=== PATIENT | female | born 1940 | race Hispanic/Latino ===

== ENCOUNTER 2017-07-12 06:17 | Inpatient (IN) | payer MEDICARE ==
[2017-07-08 08:09] VITALS: BMI 35.4
[2017-07-12] MEDS ORDERED: Morphine 1 mg/ml preservative-free Inj(Duramorph) ONE (07:43)
[2017-07-12] MEDS ORDERED: Succinylcholine 200 mg/10 ml Inj IV ONE (07:44)
[2017-07-12] MEDS ORDERED: Midazolam 2 MG/2 ML VIAL ONE (07:44)
[2017-07-12] MEDS ORDERED: Etomidate 20 mg/10ml Inj IV ONE (07:44)
[2017-07-12] MEDS ORDERED: Liquid Adhesive TOP ONE (08:22)
[2017-07-12] MEDS ORDERED: methylPREDNISolone Depo 80 mg/ml Inj ONE (08:22)
[2017-07-12] MEDS ORDERED: Sodium Chloride 0.9% 20 ML IV ONE (08:22)
[2017-07-12] MEDS ORDERED: Ropivacaine 0.5% 30ML IV ONE (08:22)
[2017-07-12] MEDS ORDERED: Bacitracin Ointment 30 GM TUBE ONE (08:23)
[2017-07-12] MEDS ORDERED: EPINEPHrine 1 mg/ml (1:1000) Inj ONE (08:30)
[2017-07-12] MEDS ORDERED: Bupivacaine 0.5% Inj(30mL) ONE (08:30)
[2017-07-12] MEDS ORDERED: Propofol 10 mg/ml Inj (20 ML) ONE (08:33)
[2017-07-12] MEDS ORDERED: Rocuronium 10 mg/ml (5 ml) ONE (08:45)
[2017-07-12 08:59] LABS: INR 1.3 (0.9-1.2); PROTHROMBIN TIME 13.3 Seconds (9.8-13.1)
[2017-07-12] MEDS ORDERED: Lactated Ringer's 1,000 ML IV ONE ×2 (09:03→11:45)
[2017-07-12] MEDS ORDERED: Sodium Chloride 0.9% 200 ML IV ONE (09:40)
[2017-07-12] MEDS ORDERED: ePHEDrine 50 mg/ml Inj ONE (10:22)
[2017-07-12] MEDS ORDERED: Bacitracin 50,000 UNIT in SODIUM CHLORIDE 3,000 ML IR ONE (10:25)
[2017-07-12] MEDS ORDERED: Neostigmine Methylsulfate 3mg/3ml Syringe IV ONE (11:43)
[2017-07-12] MEDS ORDERED: Bupivacaine 0.5% Inj(30mL) IJ ONE (11:45)
[2017-07-12] MEDS ORDERED: Sodium Chloride 0.9% Inj (10mL) IV ONE (11:45)
[2017-07-12] MEDS ORDERED: Dexamethasone 4 mg/1 ml IVP PRN (12:57)
[2017-07-12] MEDS ORDERED: HYDROmorphone 0.5 mg/0.5 ml ISec IVP PRN (12:57)
[2017-07-12] MEDS ORDERED: Albuterol 0.083% Inhal Sol (2.5 mg/3 mL) UD INH PRN (13:38)
--- NOTE | 2017-07-12 14:07 | OP ---
PROCEDURE DATE: 07/12/2017 ATTENDING PHYSICIAN: Roseann Cowart MD TRAILER ASSEMBLER: GERONIMO Steen. PREOPERATIVE DIAGNOSIS: Right hip osteoarthritis. POSTOPERATIVE DIAGNOSIS: Right hip osteoarthritis. PROCEDURE: Right total hip replacement. IMPLANTS SIZE: Howe, size 50 cup plus 2 screws, size 3 high offset stem, 32 mm head with plus 4 neck length, lateralized liner. EBL: 150 mL. ANESTHESIA TYPE: General and spinal. COMPLICATION: None. HISTORY: The patient is a 76-year-old female with long-standing history of right hip pain. The patient was seen in the office. X-rays had revealed advanced arthritis with collapse. At that time, the patient was seeking a total hip replacements since she has had failed extensive conservative management. I reviewed the risks and benefits of the surgery with the patient in detail that was concluded, but not limited to bleeding, infection, nerve/vessel damage, continued pain, instability, dislocation, fracture, blood clots, need for further surgery among others. The patient fully understood the risks and benefits and opted to proceed with the surgery. PROCEDURE: The patient was admitted to pre-operative holding area. A laterality sheet was completed confirming the patient's right hip to be the correct operative site. The patient's right hip was marked in a holding area. The patient was brought into operating table. She underwent general anesthesia and spinal anesthesia. She was secured in the right lateral decubitus position. All the bony prominences were well-padded. The right hip was draped and prepped in standard sterile manner. A timeout was completed confirming the patient's right hip to be the correct operative site. First we proceed with the placement of the pin in iliac crust for [place] robotic assisted placement, two pins were placed and the antenna was secured. Next, standard psotero- lateral incision was made. Using a 10 blade the hip was dissected. The IT band was incised along with its fibers and external rotators were excised and carefully dissected for later repair. Two additional checkpoints were placed, one in acetabulum and one in the femur. The hip was dislocated, proposed neck cut was made. The acetabulum was exposed all degenerative labrum was removed and using robot the hip was reamed using a 49 mm remur and 50 mm cup was placed with 2 screws. We also placed a 10 degree lateralized liner. Next, the attention was given to the femoral canal, was broached sequentially up to size 3 stent and 32 mm plus 4 trial head was placed, hip was reduced taking through the range of motion. It was found to stable throughout the entirety of the range of motion. Finally, the hip was dislocated, the wound was copiously irrigated, removed all the debris was removed. Size 3 high offset stem along with metal head plus 4 neck length was secured in the femur and hip was relocated, taking through the range of motion and wound to be stable throughout the entire range of motion. Finally, the cocktail was injected and the soft tissue structure for postoperative anesthesia. IT band closed using heavy fiber wire suture and a skin was closed in a standard manner. A sterile dressing was applied. The patient was extubated and taken to recovery room. She was placed in a postop hip abduction brace and also postoperative instruction included posterior hip precaution. There were no complication of surgery. Orion Hinojosa is a certified physician printer floor covering assistant who was present for the entirety of the case as her participation was crucial in patient positioning, protection of critical neurovascular structure, proper positioning of the implant and successful completion of the surgery. Roseann Cowart MD ABRAM
[2017-07-12 14:24] LABS: ABG ALLEN TEST YES; ARTERIAL BLOOD GAS HCO3 27.4 mmol/L (21-28); ARTERIAL BLOOD GAS HEMOGLOBIN 13.4 g/dL (11.7-17.4); ARTERIAL BLOOD GAS O2 CAPACITY 18.9 mL/dL (16-24); ARTERIAL BLOOD GAS O2 CONTENT 18.1 ML/dL (15-23); ARTERIAL BLOOD GAS O2 SAT 95.9 % (95-98); ARTERIAL BLOOD GAS PCO2 51 mm/Hg (35-45); ARTERIAL BLOOD GAS PH 7.37 (7.35-7.45); ARTERIAL BLOOD GAS PO2 118 mm/Hg (80-100); ARTERIAL BLOOD GAS TCO2 31.1 mmol/L (22-28)
--- NOTE | 2017-07-12 14:33 | PCM.SURG1 ---
Surgeon's Initial Post Op Note - Surgeon's Notes Surgeon: Roseann Cowart MD Drapery And Upholstery Estimator: Orion Hinojosa PA-C; Sadaf MANNING Type of Anesthesia: General Endo, Spinal Pre-Operative Diagnosis: Right Hip Osteoarthritis Operative Findings: See op report Post-Operative Diagnosis: Same as pre-op dx Operation Performed: Right Robotic assisted total hip replacement Specimen/Specimens Removed: right hip femoral head and soft tissue Estimated Blood Loss: EBL {In ML}: 250 Date of Surgery/Procedure: 07/12/17 Time of Surgery/Procedure: 10:00
--- NOTE | 2017-07-12 15:37 | RAD ---
PROCEDURE: Right Hip Radiographs. HISTORY: post op right total hip replacement COMPARISON: None. FINDINGS: BONES: Bone alignment and mineralization are normal. There is no acute displaced fracture or bone destruction. JOINTS: Status post total non cemented right hip arthroplasty. There are also postsurgical changes of total left hip arthroplasty. SOFT TISSUES: There are expected postoperative changes in the right periarticular soft tissues. Right-sided skin paige are identified. OTHER FINDINGS: None. IMPRESSION: Status post total right hip arthroplasty with expected postsurgical changes in the periarticular soft tissues.
--- NOTE | 2017-07-12 16:14 | CP.CCUPN ---
<Jojo Love - Last Filed: 07/12/17 16:33> CCU Subjective - Physician Review Subjective (Free Text): 07/12/17 16:07 Patient is a 76 yo ,f, Phx/o HTN, HLD, SCARLET, Skin Ca, CVA 2012, anxiety, vit D deficiency, Mitral regurgitation and PFO(patent forament ovale) with coumadin treatment, Left hip replacement 18 years ago, who was transferred to ICU after surgery today Right Robotic total hip replacement. Patient reports feeling well after surgery. She denies pain at this moment. denies Nausea, vomiting, chest pain, SOB. Patient using her CPAP machine from home. CCU Objective - Vital Signs / Intake & Output Vital Signs (Last 4 hours): Vital Signs Temp Pulse Resp BP Pulse Ox 07/12/17 14:35 97.4 F L 71 21 113/70 98 07/12/17 14:20 97.3 F L 67 17 128/63 100 07/12/17 14:05 62 18 114/56 L 100 07/12/17 13:50 97.1 F L 67 15 109/64 100 07/12/17 13:35 62 17 106/56 L 100 07/12/17 13:20 97 F L 61 18 103/65 100 07/12/17 13:19 64 07/12/17 13:05 67 19 95/56 L 100 07/12/17 12:50 96.8 F L 25 L 14 114/70 99 Intake and Output (Last 8hrs): Intake & Output 07/12/17 07/12/17 07/12/17 06:59 14:59 22:59 Intake Total 1999 Balance 1999 Intake: IV 1999 Other: Voiding Method Toilet - Physical Exam Head: Positive for: Atraumatic, Normocephalic Conjunctiva: Positive for: Normal Mouth: Positive for: Moist Mucous Membranes Respiratory/Chest: Positive for: Clear to Auscultation, Good Air Exchange. Negative for: Wheezes, Rales Cardiovascular: Positive for: Regular Rate and Rhythm Abdomen: Positive for: Other (Hypoactive bowel sounds). Negative for: Tenderness, Distention, Rebound, Guarding Upper Extremity: Positive for: Normal Inspection Lower Extremity: Positive for: NORMAL PULSES, Other (Right thigh dressing). Negative for: Edema, Tenderness, Swelling Neurological: Positive for: Speech Normal Skin: Positive for: Warm Psychiatric: Positive for: Alert, Oriented x 3, Normal Mood - Medications Active Medications: Active Medications Generic Name Dose Route Start Last Admin Trade Name Freq PRN Reason Stop Dose Admin Albuterol Sulfate 2.5 mg 07/12/17 13:38 Albuterol 0.083% Inhal [place] (2.5 Mg/3 Ml) Ud INH RQ4 PRN Shortness of Breath Celecoxib 100 mg 07/12/17 21:00 Celebrex PO Q12 [facility] Enoxaparin Sodium 30 mg 07/13/17 22:00 Lovenox SC Q12 [facility] Protocol Gabapentin 300 mg 07/12/17 17:00 Neurontin PO TID [facility] Hydrochlorothiazide 12.5 mg 07/13/17 09:00 Microzide PO DAILY [facility] Lactated Ringer's 1,000 mls @ 80 mls/hr 07/12/17 13:30 Lactated Ringer's IV .[id number] [facility] Cefazolin Sodium 1 gm/ Sodium 100 mls @ 100 mls/hr 07/12/17 17:00 Chloride IVPB 07/13/17 02:00 Q8 [facility] Ketorolac Tromethamine 15 mg 07/12/17 16:00 Toradol IM 07/14/17 13:35 Q6 [facility] Latanoprost 1 drop 07/12/17 22:00 Xalatan Opht OD HS [facility] Losartan Potassium 100 mg 07/13/17 09:00 Cozaar PO DAILY [facility] Metoprolol Succinate 100 mg 07/13/17 09:00 Toprol Xl PO DAILY [facility] Ondansetron HCl 4 mg 07/12/17 13:37 Zofran Inj IVP Q6 PRN Nausea/Vomiting Oxycodone HCl 20 mg 07/12/17 21:00 Oxycontin Extended Release Tab PO Q12 [facility] Oxycodone/Acetaminophen 1 tab 07/12/17 13:31 Percocet 5/325 Mg Tab PO 07/15/17 13:32 Q4 PRN Pain, moderate (4-7) - Patient Studies Lab Studies: Lab Studies 07/12/17 07/12/17 07/12/17 Range/Units 15:42 13:58 13:57 PT (9.8-13.1) Seconds INR (0.9-1.2) APTT (25.6-37.1) Seconds pCO2 51 H (35-45) mm/Hg pO2 118 H (80-100) mm/Hg HCO3 27.4 (21-28) mmol/L ABG pH 7.37 (7.35-7.45) ABG Total CO2 31.1 H (22-28) mmol/L ABG O2 Saturation 95.9 (95-98) % ABG O2 Content 18.1 (15-23) ML/dL ABG Base Excess 3.2 H (-2.0-3.0) mmol/L ABG Hemoglobin 13.4 (11.7-17.4) g/dL ABG Carboxyhemoglobin 0 L (0.5-1.5) % POC ABG HHb (Measured) 4.1 (0.0-5.0) % ABG Methemoglobin 0.5 (0.0-3.0) % ABG O2 Capacity 18.9 (16-24) mL/dL Hal Test Yes A-a O2 Difference 32.0 mm/Hg Hgb O2 Saturation 95.4 (95.0-98.0) % FiO2 30.0 % CPAP 12 POC Glucose (mg/dL) 84 100 (65-110) mg/dL Blood Type Blood Type Confirm Antibody Screen Crossmatch BBK History Checked 07/12/17 07/12/17 07/12/17 Range/Units 08:41 08:19 07:10 PT 13.3 H (9.8-13.1) Seconds INR 1.3 H (0.9-1.2) APTT 33.0 (25.6-37.1) Seconds pCO2 (35-45) mm/Hg pO2 (80-100) mm/Hg HCO3 (21-28) mmol/L ABG pH (7.35-7.45) ABG Total CO2 (22-28) mmol/L ABG O2 Saturation (95-98) % ABG O2 Content (15-23) ML/dL ABG Base Excess (-2.0-3.0) mmol/L ABG Hemoglobin (11.7-17.4) g/dL ABG Carboxyhemoglobin (0.5-1.5) % POC ABG HHb (Measured) (0.0-5.0) % ABG Methemoglobin (0.0-3.0) % ABG O2 Capacity (16-24) mL/dL Hal Test A-a O2 Difference mm/Hg Hgb O2 Saturation (95.0-98.0) % FiO2 % CPAP POC Glucose (mg/dL) (65-110) mg/dL Blood Type O POSITIVE Blood Type Confirm O POSITIVE Antibody Screen Negative Crossmatch See Detail BBK History Checked No verified bt Laboratory Results - last 24 hr 07/12/17 07/12/17 07/12/17 07:10 08:19 08:41 PT 13.3 H INR 1.3 H APTT 33.0 pCO2 pO2 HCO3 ABG pH ABG Total CO2 ABG O2 Saturation ABG O2 Content ABG Base Excess ABG Hemoglobin ABG Carboxyhemoglobin POC ABG HHb (Measured) ABG Methemoglobin ABG O2 Capacity Hal Test A-a O2 Difference Hgb O2 Saturation FiO2 CPAP POC Glucose (mg/dL) Blood Type O POSITIVE Blood Type Confirm O POSITIVE Antibody Screen Negative Crossmatch See Detail BBK History Checked No verified bt 07/12/17 07/12/17 07/12/17 13:57 13:58 15:42 PT INR APTT pCO2 51 H pO2 118 H HCO3 27.4 ABG pH 7.37 ABG Total CO2 31.1 H ABG O2 Saturation 95.9 ABG O2 Content 18.1 ABG Base Excess 3.2 H ABG Hemoglobin 13.4 ABG Carboxyhemoglobin 0 L POC ABG HHb (Measured) 4.1 ABG Methemoglobin 0.5 ABG O2 Capacity 18.9 Hal Test Yes A-a O2 Difference 32.0 Hgb O2 Saturation 95.4 FiO2 30.0 CPAP 12 POC Glucose (mg/dL) 100 84 Blood Type Blood Type Confirm Antibody Screen Crossmatch BBK History Checked Fingerstick Blood Sugar Results: 100 Review of Systems - EENT Eyes: absent: Pain - Breasts Breasts: UNREMARKABLE - Cardiovascular Cardiovascular: As Per HPI, UNREMARKABLE - Respiratory Respiratory: UNREMARKABLE - Gastrointestinal Gastrointestinal: UNREMARKABLE - Genitourinary Genitourinary: UNREMARKABLE Critical Care Progress Note - Prophylaxis DVT Prophylaxis DVT: SCDs - Nutrition Nutrition: Nutrition Category Date Time Status Cardiac [Heart Healthy Diet] [DIET] Diets 07/12/17 Dinner Active Assessment/Plan - Assessment and Plan (Free Text) Plan: 76 yo ,f, Phx/o HTN, HLD, SCARLET, Skin Ca, CVA 2013, anxiety, vit D deficiency, Mitral regurgitation and PFO(patent foramen ovale) with coumadin treatment, Left hip replacement 18 years ago, who was transferred to ICU after surgery today Right Robotic total hip replacement 1) Right Robotic total hip replacement -Iv fluids LR 80 ml/h -c/w Ancef q8h -Clear diet. advance as tolerated -Pain control toradol 15 mg Q6h, oxycodone 20 mg q12h 2) HTN -Losartan 100 mg daily -Hctz 12.5 mg -Metoprolol Succinate 100 mg Po daily 3)HLD -Simvastatin 40 mg po daily 4) Hx/o CVA -hx/o R occipital infartct CVA 2012 -no residual deficit 5) Mitral regurgitation -PFO and on warfarin. 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[facility] Escalante 6) SCARLET -controlled with CPAP home machine -C/w CPAP 7) DVT prophylaxis -Lovenox 30 mg Sc Q 12h <Shaji Walsh - Last Filed: 07/12/17 18:10> CCU Objective - Vital Signs / Intake & Output Vital Signs (Last 4 hours): Vital Signs Temp Pulse Resp BP Pulse Ox 07/12/17 15:05 98.4 F 70 11 L 100/59 L 99 07/12/17 14:35 97.4 F L 71 21 113/70 98 07/12/17 14:20 97.3 F L 67 17 128/63 100 Intake and Output (Last 8hrs): Intake & Output 07/12/17 07/12/17 07/12/17 06:59 14:59 22:59 Intake Total 1999 Balance 1999 Intake: IV 1999 Other: Voiding Method Toilet - Medications Active Medications: Active Medications Generic Name Dose Route Start Last Admin Trade Name Freq PRN Reason Stop Dose Admin Albuterol Sulfate 2.5 mg 07/12/17 13:38 Albuterol 0.083% Inhal [place] (2.5 Mg/3 Ml) Ud INH RQ4 PRN Shortness of Breath Celecoxib 100 mg 07/12/17 21:00 Celebrex PO Q12 [facility] Enoxaparin Sodium 30 mg 07/13/17 22:00 Lovenox SC Q12 [facility] Protocol Gabapentin 300 mg 07/12/17 17:00 07/12/17 16:44 Neurontin PO 300 mg TID [facility] Administration Hydrochlorothiazide 12.5 mg 07/13/17 09:00 Microzide PO DAILY [facility] Lactated Ringer's 1,000 mls @ 80 mls/hr 07/12/17 13:30 Lactated Ringer's IV .[id number] [facility] Cefazolin Sodium 1 gm/ Sodium 100 mls @ 100 mls/hr 07/12/17 17:00 07/12/17 16 :45 Chloride IVPB 07/13/17 02:00 100 mls/hr Q8 [facility] Administration Ketorolac Tromethamine 15 mg 07/12/17 16:00 07/12/17 16:44 Toradol IM 07/14/17 13:35 15 mg Q6 [facility] Administration Latanoprost 1 drop 07/12/17 22:00 Xalatan Opht OD HS [facility] Losartan Potassium 100 mg 07/13/17 09:00 Cozaar PO DAILY [facility] Metoprolol Succinate 100 mg 07/13/17 09:00 Toprol Xl PO DAILY [facility] Ondansetron HCl 4 mg 07/12/17 13:37 Zofran Inj IVP Q6 PRN Nausea/Vomiting Oxycodone HCl 20 mg 07/12/17 21:00 Oxycontin Extended Release Tab PO Q12 [facility] Oxycodone/Acetaminophen 1 tab 07/12/17 13:31 Percocet 5/325 Mg Tab PO 07/15/17 13:32 Q4 PRN Pain, moderate (4-7) - Patient Studies Lab Studies: Lab Studies 07/12/17 07/12/17 07/12/17 Range/Units 15:42 13:58 13:57 PT (9.8-13.1) Seconds INR (0.9-1.2) APTT (25.6-37.1) Seconds pCO2 51 H (35-45) mm/Hg pO2 118 H (80-100) mm/Hg HCO3 27.4 (21-28) mmol/L ABG pH 7.37 (7.35-7.45) ABG Total CO2 31.1 H (22-28) mmol/L ABG O2 Saturation 95.9 (95-98) % ABG O2 Content 18.1 (15-23) ML/dL ABG Base Excess 3.2 H (-2.0-3.0) mmol/L ABG Hemoglobin 13.4 (11.7-17.4) g/dL ABG Carboxyhemoglobin 0 L (0.5-1.5) % POC ABG HHb (Measured) 4.1 (0.0-5.0) % ABG Methemoglobin 0.5 (0.0-3.0) % ABG O2 Capacity 18.9 (16-24) mL/dL Hal Test Yes A-a O2 Difference 32.0 mm/Hg Hgb O2 Saturation 95.4 (95.0-98.0) % FiO2 30.0 % CPAP 12 POC Glucose (mg/dL) 84 100 (65-110) mg/dL Blood Type Blood Type Confirm Antibody Screen Crossmatch BBK History Checked 07/12/17 07/12/17 07/12/17 Range/Units 08:41 08:19 07:10 PT 13.3 H (9.8-13.1) Seconds INR 1.3 H (0.9-1.2) APTT 33.0 (25.6-37.1) Seconds pCO2 (35-45) mm/Hg pO2 (80-100) mm/Hg HCO3 (21-28) mmol/L ABG pH (7.35-7.45) ABG Total CO2 (22-28) mmol/L ABG O2 Saturation (95-98) % ABG O2 Content (15-23) ML/dL ABG Base Excess (-2.0-3.0) mmol/L ABG Hemoglobin (11.7-17.4) g/dL ABG Carboxyhemoglobin (0.5-1.5) % POC ABG HHb (Measured) (0.0-5.0) % ABG Methemoglobin (0.0-3.0) % ABG O2 Capacity (16-24) mL/dL Hal Test A-a O2 Difference mm/Hg Hgb O2 Saturation (95.0-98.0) % FiO2 % CPAP POC Glucose (mg/dL) (65-110) mg/dL Blood Type O POSITIVE Blood Type Confirm O POSITIVE Antibody Screen Negative Crossmatch See Detail BBK History Checked No verified bt Laboratory Results - last 24 hr 07/12/17 07/12/17 07/12/17 07:10 08:19 08:41 PT 13.3 H INR 1.3 H APTT 33.0 pCO2 pO2 HCO3 ABG pH ABG Total CO2 ABG O2 Saturation ABG O2 Content ABG Base Excess ABG Hemoglobin ABG Carboxyhemoglobin POC ABG HHb (Measured) ABG Methemoglobin ABG O2 Capacity Hal Test A-a O2 Difference Hgb O2 Saturation FiO2 CPAP POC Glucose (mg/dL) Blood Type O POSITIVE Blood Type Confirm O POSITIVE Antibody Screen Negative Crossmatch See Detail BBK History Checked No verified bt 07/12/17 07/12/17 07/12/17 13:57 13:58 15:42 PT INR APTT pCO2 51 H pO2 118 H HCO3 27.4 ABG pH 7.37 ABG Total CO2 31.1 H ABG O2 Saturation 95.9 ABG O2 Content 18.1 ABG Base Excess 3.2 H ABG Hemoglobin 13.4 ABG Carboxyhemoglobin 0 L POC ABG HHb (Measured) 4.1 ABG Methemoglobin 0.5 ABG O2 Capacity 18.9 Hal Test Yes A-a O2 Difference 32.0 Hgb O2 Saturation 95.4 FiO2 30.0 CPAP 12 POC Glucose (mg/dL) 100 84 Blood Type Blood Type Confirm Antibody Screen Crossmatch BBK History Checked Critical Care Progress Note - Nutrition Nutrition: Nutrition Category Date Time Status Cardiac [Heart Healthy Diet] [DIET] Diets 07/12/17 Dinner Active Attending/Attestation - Attestation I have personally seen and examined this patient.: Yes I have fully participated in the care of the patient.: Yes I have reviewed all pertinent clinical information: Yes Notes (Text): 07/12/17 18:08 Today: Wednesday, July 12, 2017 The patient was Seen/interviewed and examined by me at the bedside, Medical records reviewed and Management issues were discussed and formulated with the house staff. I have reviewed all the relevant clinical, laboratory, hemodynamic, radiographic data and medications Pt's current status is discussed with pt / pt's family I concur with resident's assessment and plan of care as transcribed in Dr. Love Note.
[2017-07-12] MEDS: ceFAZolin 1 GM in Sodium Chloride 0.9% 100 ML IVPB SCH (16:45)
[2017-07-12] MEDS ORDERED: oxyCODONE 20 mg ER Tab (oxyCONTIN) PO SCH (21:00)
[2017-07-12] MEDS: Latanoprost 0.005% Opht SOUTION OD SCH (21:13)
[2017-07-13] MEDS: ceFAZolin 1 GM in Sodium Chloride 0.9% 100 ML IVPB SCH (00:50)
[2017-07-13] MEDS ORDERED: ceFAZolin 1 GM in Sodium Chloride 0.9% 100 ML IVPB ONE (01:00)
[2017-07-13 05:22] LABS: BASO % 0.2 % (0.0-2.0); EOS # 0.1 K/uL (0.0-0.7); EOS % 1.2 % (0.0-4.0); LYMPH # 1.5 K/uL (1.0-4.3); LYMPH % 14.7 % (20.0-40.0); MEAN CELL VOLUME 93.1 fl (81.0-99.0); MEAN CORPUSCULAR HEMOGLOBIN 31.2 pg (27.0-31.0); MEAN CORPUSCULAR HGB CONC 33.5 g/dL (33.0-37.0); MEAN PLATELET VOLUME 8.6 fl (7.2-11.7); MONO # 1.5 K/uL (0.0-0.8); MONO % 14.4 % (0.0-10.0); NEUT # 7.3 K/uL (1.8-7.0); NEUT % 69.5 % (50.0-75.0); RBC 3.84 Mil/uL (3.80-5.20); RED CELL DISTRIBUTION WIDTH 12.7 % (11.5-14.5); WHITE BLOOD COUNT 10.4 K/uL (4.8-10.8)
[2017-07-13 05:23] LABS: CALCIUM 7.8 mg/dL (8.4-10.2)
[2017-07-13 05:33] LABS: INR 1.4 (0.9-1.2); PROTHROMBIN TIME 14.8 Seconds (9.8-13.1)
--- NOTE | 2017-07-13 08:49 | CP.CCUPN ---
<Jojo Love - Last Filed: 07/13/17 12:00> CCU Subjective - Physician Review Subjective (Free Text): 07/13/17 7:00Am Patient seen and examined bedside. NO overnight events. patient using CPAP machine. As per nurse o2 Sat 91. Patient encouraged to use incentive spirometry more frequent q1h. Patient report not voiding after yesterday surgery. She denies suprapubic pain, nausea, vomiting, no right leg pain. Patient tolerating diet. Febrile in the morning 102. Tylenol given. CCU Objective - Vital Signs / Intake & Output Vital Signs (Last 4 hours): Vital Signs Temp Pulse Resp BP Pulse Ox 07/13/17 08:00 100.2 F H 102 H 24 96/57 L 93 L 07/13/17 06:00 112 H 14 108/56 L 91 L - Physical Exam Head: Positive for: Atraumatic, Normocephalic Conjunctiva: Positive for: Normal Mouth: Positive for: Moist Mucous Membranes Respiratory/Chest: Positive for: Clear to Auscultation, Good Air Exchange. Negative for: Wheezes, Rales Cardiovascular: Positive for: Regular Rate and Rhythm Abdomen: Positive for: Normal Bowel Sounds, Other. Negative for: Tenderness, Distention, Rebound, Guarding Upper Extremity: Positive for: Normal Inspection Lower Extremity: Positive for: NORMAL PULSES, Other (Right thigh dressing intact. right calf Td to palpation, no pedal edema). Negative for: Edema, Tenderness, Swelling Neurological: Positive for: Speech Normal Skin: Positive for: Warm Psychiatric: Positive for: Alert, Oriented x 3, Normal Mood - Medications Active Medications: Active Medications Generic Name Dose Route Start Last Admin Trade Name Freq PRN Reason Stop Dose Admin Albuterol Sulfate 2.5 mg 07/12/17 13:38 Albuterol 0.083% Inhal [place] (2.5 Mg/3 Ml) Ud INH RQ4 PRN Shortness of Breath Celecoxib 100 mg 07/12/17 21:00 07/12/17 20:23 Celebrex PO 100 mg Q12 KARRI Administration Enoxaparin Sodium 30 mg 07/13/17 22:00 Lovenox SC Q12 [facility] Protocol Gabapentin 300 mg 07/12/17 17:00 07/12/17 16:44 Neurontin PO 300 mg TID KARRI Administration Hydrochlorothiazide 12.5 mg 07/13/17 09:00 Microzide PO DAILY [facility] Lactated Ringer's 1,000 mls @ 80 mls/hr 07/12/17 13:30 Lactated Ringer's IV .[id number] [facility] Ketorolac Tromethamine 15 mg 07/12/17 16:00 07/12/17 21:14 Toradol IM 07/14/17 13:35 15 mg Q6 KARRI Administration Latanoprost 1 drop 07/12/17 22:00 07/12/17 21:13 Xalatan Opht OD 1 drop HS KARRI Administration Losartan Potassium 100 mg 07/13/17 09:00 Cozaar PO DAILY [facility] Metoprolol Succinate 100 mg 07/13/17 09:00 Toprol Xl PO DAILY [facility] Ondansetron HCl 4 mg 07/12/17 13:37 Zofran Inj IVP Q6 PRN Nausea/Vomiting Oxycodone HCl 20 mg 07/12/17 21:00 07/12/17 20:23 Oxycontin Extended Release Tab PO 20 mg Q12 KARRI Administration Oxycodone/Acetaminophen 1 tab 07/12/17 13:31 Percocet 5/325 Mg Tab PO 07/15/17 13:32 Q4 PRN Pain, moderate (4-7) - Patient Studies Lab Studies: Lab Studies 07/13/17 07/13/17 07/13/17 Range/Units 06:03 04:35 04:35 WBC 10.4 (4.8-10.8) K/uL RBC 3.84 (3.80-5.20) Mil/uL Hgb 12.0 (12.0-16.0) g/dL Hct 35.8 (34.0-47.0) % MCV 93.1 (81.0-99.0) fl MCH 31.2 H (27.0-31.0) pg MCHC 33.5 (33.0-37.0) g/dL RDW 12.7 (11.5-14.5) % Plt Count 154 (130-400) K/uL MPV 8.6 (7.2-11.7) fl Neut % (Auto) 69.5 (50.0-75.0) % Lymph % (Auto) 14.7 L (20.0-40.0) % [place] % (Auto) 14.4 H (0.0-10.0) % Eos % (Auto) 1.2 (0.0-4.0) % Baso % (Auto) 0.2 (0.0-2.0) % Neut # 7.3 H (1.8-7.0) K/uL Lymph # 1.5 (1.0-4.3) K/uL [place] # 1.5 H (0.0-0.8) K/uL Eos # 0.1 (0.0-0.7) K/uL Baso # 0.0 (0.0-0.2) K/uL PT (9.8-13.1) Seconds INR (0.9-1.2) APTT (25.6-37.1) Seconds pCO2 (35-45) mm/Hg pO2 (80-100) mm/Hg HCO3 (21-28) mmol/L ABG pH (7.35-7.45) ABG Total CO2 (22-28) mmol/L ABG O2 Saturation (95-98) % ABG O2 Content (15-23) ML/dL ABG Base Excess (-2.0-3.0) mmol/L ABG Hemoglobin (11.7-17.4) g/dL ABG Carboxyhemoglobin (0.5-1.5) % POC ABG HHb (Measured) (0.0-5.0) % ABG Methemoglobin (0.0-3.0) % ABG O2 Capacity (16-24) mL/dL Hal Test A-a O2 Difference mm/Hg Hgb O2 Saturation (95.0-98.0) % FiO2 % CPAP Sodium 138 (132-148) mmol/l Potassium 3.8 (3.6-5.0) MMOL/L Chloride 102 (98-107) mmol/L Carbon Dioxide 28 (22-30) mmol/L Anion Gap 11 (10-20) BUN 27 H (7-17) mg/dl Creatinine 1.1 (0.7-1.2) mg/dL Est GFR ( Amer) 59 Est GFR (Non-Af Amer) 49 POC Glucose (mg/dL) 108 (65-110) mg/dL Random Glucose 105 (65-105) mg/dL Calcium 7.8 L (8.4-10.2) mg/dL Blood Type Blood Type Confirm Antibody Screen Crossmatch BBK History Checked 07/13/17 07/12/17 07/12/17 Range/Units 04:35 22:30 15:42 WBC (4.8-10.8) K/uL RBC (3.80-5.20) Mil/uL Hgb (12.0-16.0) g/dL Hct (34.0-47.0) % MCV (81.0-99.0) fl MCH (27.0-31.0) pg MCHC (33.0-37.0) g/dL RDW (11.5-14.5) % Plt Count (130-400) K/uL MPV (7.2-11.7) fl Neut % (Auto) (50.0-75.0) % Lymph % (Auto) (20.0-40.0) % [place] % (Auto) (0.0-10.0) % Eos % (Auto) (0.0-4.0) % Baso % (Auto) (0.0-2.0) % Neut # (1.8-7.0) K/uL Lymph # (1.0-4.3) K/uL [place] # (0.0-0.8) K/uL Eos # (0.0-0.7) K/uL Baso # (0.0-0.2) K/uL PT 14.8 H (9.8-13.1) Seconds INR 1.4 H (0.9-1.2) APTT (25.6-37.1) Seconds pCO2 (35-45) mm/Hg pO2 (80-100) mm/Hg HCO3 (21-28) mmol/L ABG pH (7.35-7.45) ABG Total CO2 (22-28) mmol/L ABG O2 Saturation (95-98) % ABG O2 Content (15-23) ML/dL ABG Base Excess (-2.0-3.0) mmol/L ABG Hemoglobin (11.7-17.4) g/dL ABG Carboxyhemoglobin (0.5-1.5) % POC ABG HHb (Measured) (0.0-5.0) % ABG Methemoglobin (0.0-3.0) % ABG O2 Capacity (16-24) mL/dL Hal Test A-a O2 Difference mm/Hg Hgb O2 Saturation (95.0-98.0) % FiO2 % CPAP Sodium (132-148) mmol/l Potassium (3.6-5.0) MMOL/L Chloride (98-107) mmol/L Carbon Dioxide (22-30) mmol/L Anion Gap (10-20) BUN (7-17) mg/dl Creatinine (0.7-1.2) mg/dL Est GFR ( Amer) Est GFR (Non-Af Amer) POC Glucose (mg/dL) 122 H 84 (65-110) mg/dL Random Glucose (65-105) mg/dL Calcium (8.4-10.2) mg/dL Blood Type Blood Type Confirm Antibody Screen Crossmatch BBK History Checked 07/12/17 07/12/17 07/12/17 Range/Units 13:58 13:57 08:41 WBC (4.8-10.8) K/uL RBC (3.80-5.20) Mil/uL Hgb (12.0-16.0) g/dL Hct (34.0-47.0) % MCV (81.0-99.0) fl MCH (27.0-31.0) pg MCHC (33.0-37.0) g/dL RDW (11.5-14.5) % Plt Count (130-400) K/uL MPV (7.2-11.7) fl Neut % (Auto) (50.0-75.0) % Lymph % (Auto) (20.0-40.0) % [place] % (Auto) (0.0-10.0) % Eos % (Auto) (0.0-4.0) % Baso % (Auto) (0.0-2.0) % Neut # (1.8-7.0) K/uL Lymph # (1.0-4.3) K/uL [place] # (0.0-0.8) K/uL Eos # (0.0-0.7) K/uL Baso # (0.0-0.2) K/uL PT 13.3 H (9.8-13.1) Seconds INR 1.3 H (0.9-1.2) APTT 33.0 (25.6-37.1) Seconds pCO2 51 H (35-45) mm/Hg pO2 118 H (80-100) mm/Hg HCO3 27.4 (21-28) mmol/L ABG pH 7.37 (7.35-7.45) ABG Total CO2 31.1 H (22-28) mmol/L ABG O2 Saturation 95.9 (95-98) % ABG O2 Content 18.1 (15-23) ML/dL ABG Base Excess 3.2 H (-2.0-3.0) mmol/L ABG Hemoglobin 13.4 (11.7-17.4) g/dL ABG Carboxyhemoglobin 0 L (0.5-1.5) % POC ABG HHb (Measured) 4.1 (0.0-5.0) % ABG Methemoglobin 0.5 (0.0-3.0) % ABG O2 Capacity 18.9 (16-24) mL/dL Hal Test Yes A-a O2 Difference 32.0 mm/Hg Hgb O2 Saturation 95.4 (95.0-98.0) % FiO2 30.0 % CPAP 12 Sodium (132-148) mmol/l Potassium (3.6-5.0) MMOL/L Chloride (98-107) mmol/L Carbon Dioxide (22-30) mmol/L Anion Gap (10-20) BUN (7-17) mg/dl Creatinine (0.7-1.2) mg/dL Est GFR ( Amer) Est GFR (Non-Af Amer) POC Glucose (mg/dL) 100 (65-110) mg/dL Random Glucose (65-105) mg/dL Calcium (8.4-10.2) mg/dL Blood Type Blood Type Confirm Antibody Screen Crossmatch BBK History Checked 07/12/17 07/12/17 Range/Units 08:19 07:10 WBC (4.8-10.8) K/uL RBC (3.80-5.20) Mil/uL Hgb (12.0-16.0) g/dL Hct (34.0-47.0) % MCV (81.0-99.0) fl MCH (27.0-31.0) pg MCHC (33.0-37.0) g/dL RDW (11.5-14.5) % Plt Count (130-400) K/uL MPV (7.2-11.7) fl Neut % (Auto) (50.0-75.0) % Lymph % (Auto) (20.0-40.0) % [place] % (Auto) (0.0-10.0) % Eos % (Auto) (0.0-4.0) % Baso % (Auto) (0.0-2.0) % Neut # (1.8-7.0) K/uL Lymph # (1.0-4.3) K/uL [place] # (0.0-0.8) K/uL Eos # (0.0-0.7) K/uL Baso # (0.0-0.2) K/uL PT (9.8-13.1) Seconds INR (0.9-1.2) APTT (25.6-37.1) Seconds pCO2 (35-45) mm/Hg pO2 (80-100) mm/Hg HCO3 (21-28) mmol/L ABG pH (7.35-7.45) ABG Total CO2 (22-28) mmol/L ABG O2 Saturation (95-98) % ABG O2 Content (15-23) ML/dL ABG Base Excess (-2.0-3.0) mmol/L ABG Hemoglobin (11.7-17.4) g/dL ABG Carboxyhemoglobin (0.5-1.5) % POC ABG HHb (Measured) (0.0-5.0) % ABG Methemoglobin (0.0-3.0) % ABG O2 Capacity (16-24) mL/dL Hal Test A-a O2 Difference mm/Hg Hgb O2 Saturation (95.0-98.0) % FiO2 % CPAP Sodium (132-148) mmol/l Potassium (3.6-5.0) MMOL/L Chloride (98-107) mmol/L Carbon Dioxide (22-30) mmol/L Anion Gap (10-20) BUN (7-17) mg/dl Creatinine (0.7-1.2) mg/dL Est GFR ( Amer) Est GFR (Non-Af Amer) POC Glucose (mg/dL) (65-110) mg/dL Random Glucose (65-105) mg/dL Calcium (8.4-10.2) mg/dL Blood Type O POSITIVE Blood Type Confirm O POSITIVE Antibody Screen Negative Crossmatch See Detail BBK History Checked No verified bt Laboratory Results - last 24 hr 07/12/17 07/12/17 07/12/17 07:10 08:19 08:41 WBC RBC Hgb Hct MCV MCH MCHC RDW Plt Count MPV Neut % (Auto) Lymph % (Auto) [place] % (Auto) Eos % (Auto) Baso % (Auto) Neut # Lymph # [place] # Eos # Baso # PT 13.3 H INR 1.3 H APTT 33.0 pCO2 pO2 HCO3 ABG pH ABG Total CO2 ABG O2 Saturation ABG O2 Content ABG Base Excess ABG Hemoglobin ABG Carboxyhemoglobin POC ABG HHb (Measured) ABG Methemoglobin ABG O2 Capacity Hal Test A-a O2 Difference Hgb O2 Saturation FiO2 CPAP Sodium Potassium Chloride Carbon Dioxide Anion Gap BUN Creatinine Est GFR ( Amer) Est GFR (Non-Af Amer) POC Glucose (mg/dL) Random Glucose Calcium Blood Type O POSITIVE Blood Type Confirm O POSITIVE Antibody Screen Negative Crossmatch See Detail BBK History Checked No verified bt 07/12/17 07/12/17 07/12/17 13:57 13:58 15:42 WBC RBC Hgb Hct MCV MCH MCHC RDW Plt Count MPV Neut % (Auto) Lymph % (Auto) [place] % (Auto) Eos % (Auto) Baso % (Auto) Neut # Lymph # [place] # Eos # Baso # PT INR APTT pCO2 51 H pO2 118 H HCO3 27.4 ABG pH 7.37 ABG Total CO2 31.1 H ABG O2 Saturation 95.9 ABG O2 Content 18.1 ABG Base Excess 3.2 H ABG Hemoglobin 13.4 ABG Carboxyhemoglobin 0 L POC ABG HHb (Measured) 4.1 ABG Methemoglobin 0.5 ABG O2 Capacity 18.9 Hal Test Yes A-a O2 Difference 32.0 Hgb O2 Saturation 95.4 FiO2 30.0 CPAP 12 Sodium Potassium Chloride Carbon Dioxide Anion Gap BUN Creatinine Est GFR ( Amer) Est GFR (Non-Af Amer) POC Glucose (mg/dL) 100 84 Random Glucose Calcium Blood Type Blood Type Confirm Antibody Screen Crossmatch BBK History Checked 07/12/17 07/13/17 07/13/17 22:30 04:35 04:35 WBC 10.4 RBC 3.84 Hgb 12.0 Hct 35.8 MCV 93.1 MCH 31.2 H MCHC 33.5 RDW 12.7 Plt Count 154 MPV 8.6 Neut % (Auto) 69.5 Lymph % (Auto) 14.7 L [place] % (Auto) 14.4 H Eos % (Auto) 1.2 Baso % (Auto) 0.2 Neut # 7.3 H Lymph # 1.5 [place] # 1.5 H Eos # 0.1 Baso # 0.0 PT 14.8 H INR 1.4 H APTT pCO2 pO2 HCO3 ABG pH ABG Total CO2 ABG O2 Saturation ABG O2 Content ABG Base Excess ABG Hemoglobin ABG Carboxyhemoglobin POC ABG HHb (Measured) ABG Methemoglobin ABG O2 Capacity Hal Test A-a O2 Difference Hgb O2 Saturation FiO2 CPAP Sodium Potassium Chloride Carbon Dioxide Anion Gap BUN Creatinine Est GFR ( Amer) Est GFR (Non-Af Amer) POC Glucose (mg/dL) 122 H Random Glucose Calcium Blood Type Blood Type Confirm Antibody Screen Crossmatch BBK History Checked 07/13/17 07/13/17 04:35 06:03 WBC RBC Hgb Hct MCV MCH MCHC RDW Plt Count MPV Neut % (Auto) Lymph % (Auto) [place] % (Auto) Eos % (Auto) Baso % (Auto) Neut # Lymph # [place] # Eos # Baso # PT INR APTT pCO2 pO2 HCO3 ABG pH ABG Total CO2 ABG O2 Saturation ABG O2 Content ABG Base Excess ABG Hemoglobin ABG Carboxyhemoglobin POC ABG HHb (Measured) ABG Methemoglobin ABG O2 Capacity Hal Test A-a O2 Difference Hgb O2 Saturation FiO2 CPAP Sodium 138 Potassium 3.8 Chloride 102 Carbon Dioxide 28 Anion Gap 11 BUN 27 H Creatinine 1.1 Est GFR ( Amer) 59 Est GFR (Non-Af Amer) 49 POC Glucose (mg/dL) 108 Random Glucose 105 Calcium 7.8 L Blood Type Blood Type Confirm Antibody Screen Crossmatch BBK History Checked Fingerstick Blood Sugar Results: 108 Review of Systems - EENT Ears: UNREMARKABLE - Cardiovascular Cardiovascular: UNREMARKABLE - Gastrointestinal Gastrointestinal: UNREMARKABLE - Musculoskeletal Musculoskeletal: absent: Joint Swelling - Psychiatric Psychiatric: UNREMARKABLE Critical Care Progress Note - Nutrition Nutrition: Nutrition Category Date Time Status Cardiac [Heart Healthy Diet] [DIET] Diets 07/12/17 Dinner Active Assessment/Plan - Assessment and Plan (Free Text) Plan: 76 yo ,f, Phx/o HTN, HLD, SCARLET, Skin Ca, CVA 2012, anxiety, vit D deficiency, Mitral regurgitation and PFO(patent foramen ovale) with coumadin treatment, Left hip replacement 18 years ago, who was transferred to ICU after surgery for Right Robotic total hip replacement 1) Right Robotic total hip replacement POD#1 -Iv fluids LR 80 ml/h -c/w Ancef q8h -Clear diet. advance as tolerated -Pain control toradol 15 mg Q6h PRN, Percocet Q4h PRN 2) Fever - labs reviewed CBC: WBC: 10.4 tachycardic -Tylenol 650 mg PO PRN -f/u vitals 3) HTN -controlled -BP low in the morning -will adjust meds as patiet's list -Losartan 100 mg qday -Hctz 12.5 mg -Metoprolol Tartrate 50 mg BID start tomorrow AM.Metoprolol 100 mg Succinate already given today. 4) SHASHANK postrenal secondary to urinary retention and meds -pain meds adjusted Bun/Cr 27/1.1 Bladder scan 212 ml -will f/u urine output 5)HLD -Simvastatin 40 mg po daily 6) Hx/o CVA -hx/o R occipital infartct CVA 2012 -no residual deficit 7) Mitral regurgitation -PFO and on warfarin. warfarin hold -Last INR 2.2 2 weeks ago -[employer] outpatient [facility] 8) SCARLET -controlled with CPAP home machine -C/w CPAP 9) DVT prophylaxis -Lovenox 30 mg Sc Q 12h <Shaji Walsh M - Last Filed: 07/13/17 14:21> CCU Objective - Vital Signs / Intake & Output Vital Signs (Last 4 hours): Vital Signs Temp Pulse Resp BP Pulse Ox 07/13/17 12:00 99.6 F 94 H 18 103/46 L 96 07/13/17 11:17 99.6 F Intake and Output (Last 8hrs): Intake & Output 07/12/17 07/13/17 07/13/17 22:59 06:59 14:59 Intake Total 560 Output Total 50 Balance 510 Intake: IV 320 Oral 240 Output: Urine 50 Urine, Voided 50 - Medications Active Medications: Active Medications Generic Name Dose Route Start Last Admin Trade Name Freq PRN Reason Stop Dose Admin Acetaminophen 650 mg 07/13/17 09:45 07/13/17 10:17 Tylenol 325mg Tab PO 650 mg ONCE PRN Administration Fever >100.4 F Albuterol Sulfate 2.5 mg 07/12/17 13:38 Albuterol 0.083% Inhal [place] (2.5 Mg/3 Ml) Ud INH RQ4 PRN Shortness of Breath Celecoxib 100 mg 07/12/17 21:00 07/13/17 13:02 Celebrex PO 100 mg Q12 KARRI Administration Enoxaparin Sodium 30 mg 07/13/17 22:00 Lovenox SC Q12 [facility] Protocol Gabapentin 300 mg 07/13/17 17:00 Neurontin PO Q8 [facility] Hydrochlorothiazide 12.5 mg 07/13/17 09:00 Microzide PO DAILY [facility] Lactated Ringer's 1,000 mls @ 80 mls/hr 07/12/17 13:30 Lactated Ringer's IV .[id number] [facility] Ketorolac Tromethamine 15 mg 07/13/17 09:40 Toradol IM 07/14/17 13:35 Q6 PRN Pain, moderate (4-7) Latanoprost 1 drop 07/12/17 22:00 07/12/17 21:13 Xalatan Opht OD 1 drop HS [facility] Administration Losartan Potassium 100 mg 07/13/17 09:00 Cozaar PO DAILY [facility] Metoprolol Tartrate 50 mg 07/14/17 09:00 Lopressor PO BID [facility] Ondansetron HCl 4 mg 07/12/17 13:37 Zofran Inj IVP Q6 PRN Nausea/Vomiting Oxycodone/Acetaminophen 1 tab 07/12/17 13:31 Percocet 5/325 Mg Tab PO 07/15/17 13:32 Q4 PRN Pain, moderate (4-7) - Patient Studies Lab Studies: Lab Studies 07/13/17 07/13/17 07/13/17 Range/Units 06:03 04:35 04:35 WBC 10.4 (4.8-10.8) K/uL RBC 3.84 (3.80-5.20) Mil/uL Hgb 12.0 (12.0-16.0) g/dL Hct 35.8 (34.0-47.0) % MCV 93.1 (81.0-99.0) fl MCH 31.2 H (27.0-31.0) pg MCHC 33.5 (33.0-37.0) g/dL RDW 12.7 (11.5-14.5) % Plt Count 154 (130-400) K/uL MPV 8.6 (7.2-11.7) fl Neut % (Auto) 69.5 (50.0-75.0) % Lymph % (Auto) 14.7 L (20.0-40.0) % [place] % (Auto) 14.4 H (0.0-10.0) % Eos % (Auto) 1.2 (0.0-4.0) % Baso % (Auto) 0.2 (0.0-2.0) % Neut # 7.3 H (1.8-7.0) K/uL Lymph # 1.5 (1.0-4.3) K/uL [place] # 1.5 H (0.0-0.8) K/uL Eos # 0.1 (0.0-0.7) K/uL Baso # 0.0 (0.0-0.2) K/uL PT (9.8-13.1) Seconds INR (0.9-1.2) pCO2 (35-45) mm/Hg pO2 (80-100) mm/Hg HCO3 (21-28) mmol/L ABG pH (7.35-7.45) ABG Total CO2 (22-28) mmol/L ABG O2 Saturation (95-98) % ABG O2 Content (15-23) ML/dL ABG Base Excess (-2.0-3.0) mmol/L ABG Hemoglobin (11.7-17.4) g/dL ABG Carboxyhemoglobin (0.5-1.5) % POC ABG HHb (Measured) (0.0-5.0) % ABG Methemoglobin (0.0-3.0) % ABG O2 Capacity (16-24) mL/dL Hal Test A-a O2 Difference mm/Hg Hgb O2 Saturation (95.0-98.0) % FiO2 % CPAP Sodium 138 (132-148) mmol/l Potassium 3.8 (3.6-5.0) MMOL/L Chloride 102 (98-107) mmol/L Carbon Dioxide 28 (22-30) mmol/L Anion Gap 11 (10-20) BUN 27 H (7-17) mg/dl Creatinine 1.1 (0.7-1.2) mg/dL Est GFR ( Amer) 59 Est GFR (Non-Af Amer) 49 POC Glucose (mg/dL) 108 (65-110) mg/dL Random Glucose 105 (65-105) mg/dL Calcium 7.8 L (8.4-10.2) mg/dL 07/13/17 07/12/17 07/12/17 Range/Units 04:35 22:30 15:42 WBC (4.8-10.8) K/uL RBC (3.80-5.20) Mil/uL Hgb (12.0-16.0) g/dL Hct (34.0-47.0) % MCV (81.0-99.0) fl MCH (27.0-31.0) pg MCHC (33.0-37.0) g/dL RDW (11.5-14.5) % Plt Count (130-400) K/uL MPV (7.2-11.7) fl Neut % (Auto) (50.0-75.0) % Lymph % (Auto) (20.0-40.0) % [place] % (Auto) (0.0-10.0) % Eos % (Auto) (0.0-4.0) % Baso % (Auto) (0.0-2.0) % Neut # (1.8-7.0) K/uL Lymph # (1.0-4.3) K/uL [place] # (0.0-0.8) K/uL Eos # (0.0-0.7) K/uL Baso # (0.0-0.2) K/uL PT 14.8 H (9.8-13.1) Seconds INR 1.4 H (0.9-1.2) pCO2 (35-45) mm/Hg pO2 (80-100) mm/Hg HCO3 (21-28) mmol/L ABG pH (7.35-7.45) ABG Total CO2 (22-28) mmol/L ABG O2 Saturation (95-98) % ABG O2 Content (15-23) ML/dL ABG Base Excess (-2.0-3.0) mmol/L ABG Hemoglobin (11.7-17.4) g/dL ABG Carboxyhemoglobin (0.5-1.5) % POC ABG HHb (Measured) (0.0-5.0) % ABG Methemoglobin (0.0-3.0) % ABG O2 Capacity (16-24) mL/dL Hal Test A-a O2 Difference mm/Hg Hgb O2 Saturation (95.0-98.0) % FiO2 % CPAP Sodium (132-148) mmol/l Potassium (3.6-5.0) MMOL/L Chloride (98-107) mmol/L Carbon Dioxide (22-30) mmol/L Anion Gap (10-20) BUN (7-17) mg/dl Creatinine (0.7-1.2) mg/dL Est GFR ( Amer) Est GFR (Non-Af Amer) POC Glucose (mg/dL) 122 H 84 (65-110) mg/dL Random Glucose (65-105) mg/dL Calcium (8.4-10.2) mg/dL 07/12/17 Range/Units 13:57 WBC (4.8-10.8) K/uL RBC (3.80-5.20) Mil/uL Hgb (12.0-16.0) g/dL Hct (34.0-47.0) % MCV (81.0-99.0) fl MCH (27.0-31.0) pg MCHC (33.0-37.0) g/dL RDW (11.5-14.5) % Plt Count (130-400) K/uL MPV (7.2-11.7) fl Neut % (Auto) (50.0-75.0) % Lymph % (Auto) (20.0-40.0) % [place] % (Auto) (0.0-10.0) % Eos % (Auto) (0.0-4.0) % Baso % (Auto) (0.0-2.0) % Neut # (1.8-7.0) K/uL Lymph # (1.0-4.3) K/uL [place] # (0.0-0.8) K/uL Eos # (0.0-0.7) K/uL Baso # (0.0-0.2) K/uL PT (9.8-13.1) Seconds INR (0.9-1.2) pCO2 51 H (35-45) mm/Hg pO2 118 H (80-100) mm/Hg HCO3 27.4 (21-28) mmol/L ABG pH 7.37 (7.35-7.45) ABG Total CO2 31.1 H (22-28) mmol/L ABG O2 Saturation 95.9 (95-98) % ABG O2 Content 18.1 (15-23) ML/dL ABG Base Excess 3.2 H (-2.0-3.0) mmol/L ABG Hemoglobin 13.4 (11.7-17.4) g/dL ABG Carboxyhemoglobin 0 L (0.5-1.5) % POC ABG HHb (Measured) 4.1 (0.0-5.0) % ABG Methemoglobin 0.5 (0.0-3.0) % ABG O2 Capacity 18.9 (16-24) mL/dL Hal Test Yes A-a O2 Difference 32.0 mm/Hg Hgb O2 Saturation 95.4 (95.0-98.0) % FiO2 30.0 % CPAP 12 Sodium (132-148) mmol/l Potassium (3.6-5.0) MMOL/L Chloride (98-107) mmol/L Carbon Dioxide (22-30) mmol/L Anion Gap (10-20) BUN (7-17) mg/dl Creatinine (0.7-1.2) mg/dL Est GFR ( Amer) Est GFR (Non-Af Amer) POC Glucose (mg/dL) (65-110) mg/dL Random Glucose (65-105) mg/dL Calcium (8.4-10.2) mg/dL Laboratory Results - last 24 hr 07/12/17 07/12/17 07/12/17 13:57 15:42 22:30 WBC RBC Hgb Hct MCV MCH MCHC RDW Plt Count MPV Neut % (Auto) Lymph % (Auto) [place] % (Auto) Eos % (Auto) Baso % (Auto) Neut # Lymph # [place] # Eos # Baso # PT INR pCO2 51 H pO2 118 H HCO3 27.4 ABG pH 7.37 ABG Total CO2 31.1 H ABG O2 Saturation 95.9 ABG O2 Content 18.1 ABG Base Excess 3.2 H ABG Hemoglobin 13.4 ABG Carboxyhemoglobin 0 L POC ABG HHb (Measured) 4.1 ABG Methemoglobin 0.5 ABG O2 Capacity 18.9 Hal Test Yes A-a O2 Difference 32.0 Hgb O2 Saturation 95.4 FiO2 30.0 CPAP 12 Sodium Potassium Chloride Carbon Dioxide Anion Gap BUN Creatinine Est GFR ( Amer) Est GFR (Non-Af Amer) POC Glucose (mg/dL) 84 122 H Random Glucose Calcium 07/13/17 07/13/17 07/13/17 04:35 04:35 04:35 WBC 10.4 RBC 3.84 Hgb 12.0 Hct 35.8 MCV 93.1 MCH 31.2 H MCHC 33.5 RDW 12.7 Plt Count 154 MPV 8.6 Neut % (Auto) 69.5 Lymph % (Auto) 14.7 L [place] % (Auto) 14.4 H Eos % (Auto) 1.2 Baso % (Auto) 0.2 Neut # 7.3 H Lymph # 1.5 [place] # 1.5 H Eos # 0.1 Baso # 0.0 PT 14.8 H INR 1.4 H pCO2 pO2 HCO3 ABG pH ABG Total CO2 ABG O2 Saturation ABG O2 Content ABG Base Excess ABG Hemoglobin ABG Carboxyhemoglobin POC ABG HHb (Measured) ABG Methemoglobin ABG O2 Capacity Hal Test A-a O2 Difference Hgb O2 Saturation FiO2 CPAP Sodium 138 Potassium 3.8 Chloride 102 Carbon Dioxide 28 Anion Gap 11 BUN 27 H Creatinine 1.1 Est GFR ( Amer) 59 Est GFR (Non-Af Amer) 49 POC Glucose (mg/dL) Random Glucose 105 Calcium 7.8 L 07/13/17 06:03 WBC RBC Hgb Hct MCV MCH MCHC RDW Plt Count MPV Neut % (Auto) Lymph % (Auto) [place] % (Auto) Eos % (Auto) Baso % (Auto) Neut # Lymph # [place] # Eos # Baso # PT INR pCO2 pO2 HCO3 ABG pH ABG Total CO2 ABG O2 Saturation ABG O2 Content ABG Base Excess ABG Hemoglobin ABG Carboxyhemoglobin POC ABG HHb (Measured) ABG Methemoglobin ABG O2 Capacity Hal Test A-a O2 Difference Hgb O2 Saturation FiO2 CPAP Sodium Potassium Chloride Carbon Dioxide Anion Gap BUN Creatinine Est GFR ( Amer) Est GFR (Non-Af Amer) POC Glucose (mg/dL) 108 Random Glucose Calcium Critical Care Progress Note - Nutrition Nutrition: Nutrition Category Date Time Status Cardiac [Heart Healthy Diet] [DIET] Diets 07/12/17 Dinner Active Attending/Attestation - Attestation I have personally seen and examined this patient.: Yes I have fully participated in the care of the patient.: Yes I have reviewed all pertinent clinical information: Yes Notes (Text): 07/13/17 14:19 Today: Tuesday, July 13, 2017 The patient was Seen/interviewed and examined by me at the bedside during ICU round, Medical records reviewed and Management issues were discussed and formulated with the house staff. I have reviewed all the relevant clinical, laboratory, hemodynamic, radiographic data and medications I was present for the viveros/critical components of the service performed by the resident, concur with resident's assessment and plan of care as transcribed in Dr. Tessy Love..
[2017-07-13] MEDS ORDERED: Metoprolol Succinate 100 mg XL Tab PO SCH (09:00)
--- NOTE | 2017-07-13 13:42 | CP.PCM.HP ---
History of Present Illness - History of Present Illness History of Present Illness: 76 yo ,f, Phx/o HTN, HLD, SCARLET, Skin Ca, CVA 2012, anxiety, vit D deficiency, Mitral regurgitation and PFO(patent forament ovale) with coumadin treatment, Left hip replacement 18 years ago, who was transferred to ICU after surgery yesterday, Right Robotic total hip replacement. patient seen and examined in ICU with attending. patient alert, awake, and oriented x 3 Reports good pain control with pain meds, and denies CP, SOB, N/V, abdominal pain Present on Admission - Present on Admission Any Indicators Present on Admission: No History of DVT/PE: No History of Uncontrolled Diabetes: No Urinary Catheter: No Decubitus Ulcer Present: No Review of Systems - Review of Systems All systems: reviewed and no additional remarkable complaints except (as per HPI ) Past Patient History - Tetanus Immunizations Tetanus Immunization: Unknown - Past Medical History & Family History Past Medical History?: Yes - Past Social History Smoking Status: Never Smoked - CARDIAC Hx Hypercholesterolemia: Yes Hx Hypertension: Yes - PULMONARY Hx Respiratory Disorders: Yes Hx Sleep Apnea: Yes (ON C-PAP) - NEUROLOGICAL Hx Neurological Disorder: Yes Other/Comment: HX OF VERY LIGHT STROKE -NO RESIDUAL -5 YEARS AGO - HEENT Hx HEENT Problems: Yes Hx Glaucoma: Yes - RENAL Hx Chronic Kidney Disease: No - ENDOCRINE/METABOLIC Hx Endocrine Disorders: No - HEMATOLOGICAL/ONCOLOGICAL Hx Blood Disorders: No Hx Anemia: No Hx Blood Transfusions: No - INTEGUMENTARY Hx Dermatological Problems: No - MUSCULOSKELETAL/RHEUMATOLOGICAL Hx Musculoskeletal Disorders: Yes Hx Arthritis: Yes Hx Osteoarthritis: Yes - GASTROINTESTINAL Hx Gastrointestinal Disorders: No - GENITOURINARY/GYNECOLOGICAL Hx Genitourinary Disorders: No - PSYCHIATRIC Hx Psychophysiologic Disorder: No - SURGICAL HISTORY Hx Surgeries: Yes Other/Comment: LEFT TOTAL HIP-1998;GALLBLADDER SURGERY;HEART ABLATION-SEVERE SVT -8-YEARS AGO;TONSILLECTOMY - ANESTHESIA Hx Anesthesia: Yes Hx Anesthesia Reactions: No Hx Malignant Hyperthermia: No Has any member of the family had a problem w/ anesthesia?: No Meds Allergies/Adverse Reactions: Allergies Allergy/AdvReac Type Severity Reaction Status Date / Time No Known Allergies Allergy Verified 08/01/12 14:34 Physical Exam - Constitutional Appears: No Acute Distress - ENT Exam ENT Exam: Mucous Membranes Moist - Respiratory Exam Respiratory Exam: Clear to Auscultation Bilateral, NORMAL BREATHING PATTERN - Cardiovascular Exam Cardiovascular Exam: REGULAR RHYTHM, +S1, +S2 - GI/Abdominal Exam GI & Abdominal Exam: Normal Bowel Sounds, Soft. absent: Distended, Guarding, Rigid, Tenderness - Extremities Exam Extremities exam: Positive for: normal inspection. Negative for: pedal edema - Neurological Exam Neurological exam: Alert, Oriented x3 - Psychiatric Exam Psychiatric exam: Normal Affect, Normal Mood - Skin Skin Exam: Dry, Intact, Normal Color Results - Vital Signs Recent Vital Signs: Last Vital Signs Temp 99.6 F 07/13/17 12:00 Pulse 94 H 07/13/17 12:00 Resp 18 07/13/17 12:00 BP 103/46 L 07/13/17 12:00 Pulse Ox 96 07/13/17 12:00 - Labs Result Diagrams: 07/13/17 04:35 07/13/17 04:35 Labs: Laboratory Results - last 24 hr 07/12/17 07/12/17 07/12/17 13:57 13:58 15:42 WBC RBC Hgb Hct MCV MCH MCHC RDW Plt Count MPV Neut % (Auto) Lymph % (Auto) Liberty % (Auto) Eos % (Auto) Baso % (Auto) Neut # Lymph # Liberty # Eos # Baso # PT INR pCO2 51 H pO2 118 H HCO3 27.4 ABG pH 7.37 ABG Total CO2 31.1 H ABG O2 Saturation 95.9 ABG O2 Content 18.1 ABG Base Excess 3.2 H ABG Hemoglobin 13.4 ABG Carboxyhemoglobin 0 L POC ABG HHb (Measured) 4.1 ABG Methemoglobin 0.5 ABG O2 Capacity 18.9 Hal Test Yes A-a O2 Difference 32.0 Hgb O2 Saturation 95.4 FiO2 30.0 CPAP 12 Sodium Potassium Chloride Carbon Dioxide Anion Gap BUN Creatinine Est GFR ( Amer) Est GFR (Non-Af Amer) POC Glucose (mg/dL) 100 84 Random Glucose Calcium 07/12/17 07/13/17 07/13/17 22:30 04:35 04:35 WBC 10.4 RBC 3.84 Hgb 12.0 Hct 35.8 MCV 93.1 MCH 31.2 H MCHC 33.5 RDW 12.7 Plt Count 154 MPV 8.6 Neut % (Auto) 69.5 Lymph % (Auto) 14.7 L Liberty % (Auto) 14.4 H Eos % (Auto) 1.2 Baso % (Auto) 0.2 Neut # 7.3 H Lymph # 1.5 Liberty # 1.5 H Eos # 0.1 Baso # 0.0 PT 14.8 H INR 1.4 H pCO2 pO2 HCO3 ABG pH ABG Total CO2 ABG O2 Saturation ABG O2 Content ABG Base Excess ABG Hemoglobin ABG Carboxyhemoglobin POC ABG HHb (Measured) ABG Methemoglobin ABG O2 Capacity Hal Test A-a O2 Difference Hgb O2 Saturation FiO2 CPAP Sodium Potassium Chloride Carbon Dioxide Anion Gap BUN Creatinine Est GFR ( Amer) Est GFR (Non-Af Amer) POC Glucose (mg/dL) 122 H Random Glucose Calcium /16/17 /16/17 04:35 06:03 WBC RBC Hgb Hct MCV MCH MCHC RDW Plt Count MPV Neut % (Auto) Lymph % (Auto) Liberty % (Auto) Eos % (Auto) Baso % (Auto) Neut # Lymph # Liberty # Eos # Baso # PT INR pCO2 pO2 HCO3 ABG pH ABG Total CO2 ABG O2 Saturation ABG O2 Content ABG Base Excess ABG Hemoglobin ABG Carboxyhemoglobin POC ABG HHb (Measured) ABG Methemoglobin ABG O2 Capacity Hal Test A-a O2 Difference Hgb O2 Saturation FiO2 CPAP Sodium 138 Potassium 3.8 Chloride 102 Carbon Dioxide 28 Anion Gap 11 BUN 27 H Creatinine 1.1 Est GFR ( Amer) 59 Est GFR (Non-Af Amer) 49 POC Glucose (mg/dL) 108 Random Glucose 105 Calcium 7.8 L Assessment & Plan - Assessment and Plan (Free Text) Assessment: 76 Y/O F S/P Right Robotic total hip replacement on POD #1 Plan: Right Robotic total hip replacement POD#1 -Iv fluids LR 80 ml/h -c/w Ancef q8h for 3 doses -Clear diet. advance as tolerated -Pain control toradol 15 mg Q6h PRN, Percocet Q4h PRN -incentive spirometer -f/u Ortho recommendations HTN -controlled -BP low in the morning -Losartan 100 mg qday. Held for today due to low BP -Hctz 12.5 mg. Held for today due to low BP -Metoprolol Tartrate 50 mg BID start tomorrow AM.Metoprolol 100 mg Succinate already given today.As per ICU doctors recommendation HLD -Simvastatin 40 mg po daily Hx/o CVA -hx/o R occipital infartct CVA 2012 -no residual deficit Mitral regurgitation -PFO and on warfarin. warfarin hold -Last INR 2.2 2 weeks ago -Triage Nurse outpatient Germain Escalante SCARLET -controlled with CPAP home machine -C/w CPAP DVT prophylaxis -start today Lovenox 30 mg Sc Q 12h - Date & Time Date: 07/13/17 Time: 09:45
--- NOTE | 2017-07-13 14:53 | CP.PCM.PN ---
Subjective - Date & Time of Evaluation Date of Evaluation: 07/13/17 Time of Evaluation: 08:30 - Subjective Subjective: S/P Right robotic assisted total hip replacement POD#1 Pt seen and examined at bedside, comfortable in bed Pt c/o mild right hip pain Pt denies any SOB, chest pain, N/V/D Objective - Vital Signs/Intake and Output Vital Signs (last 24 hours): Temp Pulse Resp BP Pulse Ox 99.6 F 94 H 18 103/46 L 96 07/13/17 12:00 07/13/17 12:00 07/13/17 12:00 07/13/17 12:00 07/13/17 12:00 Intake and Output: 07/13/17 07/13/17 06:59 18:59 Intake Total 560 Output Total 50 Balance 510 - Medications Medications: Current Medications Acetaminophen (Tylenol 325mg Tab) 650 mg PO ONCE PRN PRN Reason: Fever >100.4 F Last Admin: 07/13/17 10:17 Dose: 650 mg Albuterol Sulfate (Albuterol 0.083% Inhal [place] (2.5 Mg/3 Ml) Ud) 2.5 mg INH RQ4 PRN PRN Reason: Shortness of Breath Celecoxib (Celebrex) 100 mg PO Q12 [facility] Last Admin: 07/13/17 13:02 Dose: 100 mg Enoxaparin Sodium (Lovenox) 30 mg SC Q12 [facility] PRN Reason: Protocol Gabapentin (Neurontin) 300 mg PO Q8 [facility] Hydrochlorothiazide (Microzide) 12.5 mg PO DAILY [facility] Lactated Ringer's (Lactated Ringer's) 1,000 mls @ 80 mls/hr IV .[id number] [facility] Ketorolac Tromethamine (Toradol) 15 mg IM Q6 PRN PRN Reason: Pain, moderate (4-7) Stop: 07/14/17 13:35 Latanoprost (Xalatan Opht) 1 drop OD HS [facility] Last Admin: 07/12/17 21:13 Dose: 1 drop Losartan Potassium (Cozaar) 100 mg PO DAILY [facility] Metoprolol Tartrate (Lopressor) 50 mg PO BID [facility] Ondansetron HCl (Zofran Inj) 4 mg IVP Q6 PRN PRN Reason: Nausea/Vomiting Oxycodone/Acetaminophen (Percocet 5/325 Mg Tab) 1 tab PO Q4 PRN PRN Reason: Pain, moderate (4-7) Stop: 07/15/17 13:32 - Labs Labs: 07/13/17 04:35 07/13/17 04:35 PT 14.8 Seconds (9.8-13.1) H 07/13/17 04:35 INR 1.4 (0.9-1.2) H 07/13/17 04:35 APTT 33.0 Seconds (25.6-37.1) 07/12/17 08:41 - Constitutional Appears: Well, No Acute Distress - Respiratory Exam Respiratory Exam: Clear to Ausculation Bilateral, NORMAL BREATHING PATTERN - Cardiovascular Exam Cardiovascular Exam: REGULAR RHYTHM, RRR - Extremities Exam Additional comments: RLE: Hip dressing C/D/I Calves soft and compressible b/l, +ttp right calf N/V intact distally Distal pulses wnl No foot drop Assessment and Plan - Assessment and Plan (Free Text) Assessment: 76 yo F s/p right robotic assisted total hip replacement POD#1 Plan: 76 yo F s/p right robotic assisted total hip replacement POD#1 Pain Control DVT ppx F/U b/l LE US r/o DVT RLE Incentive Spirometer PT/OT- WBAT RLE F/U labs Continue current management Discussed with Dr. Cowart
--- NOTE | 2017-07-13 15:11 | US ---
PROCEDURE: Bilateral lower extremity venous duplex Doppler. HISTORY: r/o dvt COMPARISON: None available. TECHNIQUE: Bilateral common femoral, superficial femoral, popliteal and posterior tibial veins were evaluated. Flow was assessed with color Doppler, compressibility, assessment of phasic flow and augmentation response. FINDINGS: COMMON FEMORAL VEIN: Right CFV: There is normal direction of flow, compressibility and spectral waveform. Left CFV: There is normal direction of flow, compressibility and spectral waveform. SUPERFICIAL FEMORAL VEIN: Right SFV: There is normal direction of flow, compressibility and spectral waveform. Left SFV: There is normal direction of flow, compressibility and spectral waveform. POPLITEAL VEIN: Right Popliteal: There is normal direction of flow, compressibility and spectral waveform. Left Popliteal: There is normal direction of flow, compressibility and spectral waveform. POSTERIOR TIBIAL VEIN: Right PTV: There is normal direction of flow, compressibility and spectral waveform. Left PTV: There is normal direction of flow, compressibility and spectral waveform. OTHER FINDINGS: None. IMPRESSION: No evidence of deep venous thrombosis.
[2017-07-13] MEDS: Enoxaparin 30 mg Syringe SC SCH (21:07)
[2017-07-13] MEDS: Latanoprost 0.005% Opht SOUTION OD SCH (21:07)
[2017-07-13] MEDS: Lactated Ringer's 1,000 ML IV SCH (21:12)
[2017-07-14] MEDS: Lactated Ringer's 1,000 ML IV SCH (03:42)
[2017-07-14 06:07] LABS: HEMOGLOBIN 11.9 g/dL (12.0-16.0); MEAN CELL VOLUME 93.3 fl (81.0-99.0); MEAN CORPUSCULAR HEMOGLOBIN 30.8 pg (27.0-31.0); RBC 3.86 Mil/uL (3.80-5.20); RED CELL DISTRIBUTION WIDTH 12.9 % (11.5-14.5); WHITE BLOOD COUNT 18.1 K/uL (4.8-10.8)
[2017-07-14 06:16] LABS: ALBUMIN 3.1 g/dL (3.5-5.0); CALCIUM 7.9 mg/dL (8.4-10.2)
[2017-07-14 06:36] LABS: ALB/GLOB RATIO 1.1 (1.0-2.1)
[2017-07-14] MEDS: Enoxaparin 30 mg Syringe SC SCH ×2 (08:15→20:18)
[2017-07-14 11:01] LABS: HEMOGLOBIN 11.9 g/dL (12.0-16.0); MEAN CORPUSCULAR HEMOGLOBIN 30.9 pg (27.0-31.0); MEAN CORPUSCULAR HGB CONC 33.6 g/dL (33.0-37.0); RBC 3.86 Mil/uL (3.80-5.20); RED CELL DISTRIBUTION WIDTH 12.9 % (11.5-14.5); WHITE BLOOD COUNT 14.3 K/uL (4.8-10.8)
[2017-07-14] MEDS: Sodium Chloride 0.9% 1,000 ML IV SCH ×3 (11:31→22:28)
[2017-07-14] MEDS: Pantoprazole 40 mg EC Tab PO SCH (11:33)
[2017-07-14] MEDS: ceFAZolin 1 GM in Sodium Chloride 0.9% 100 ML IVPB SCH ×2 (11:40→17:12)
[2017-07-14] MEDS: Oxycodone/Acetaminophen 5/325 mg Tab PO PRN ×2 (14:58→20:16)
[2017-07-14 15:14] LABS: SQUAMOUS EPITHIAL 3 /hpf (0-5); URINE BILIRUBIN NEGATIVE (NEGATIVE); URINE BLOOD SMALL (NEGATIVE); URINE CLARITY TURBID (Clear); URINE COLOR YELLOW (YELLOW); URINE GLUCOSE (UA) NEG (Normal); URINE LEUKOCYTE ESTERASE LARGE Leu/uL (Negative); URINE NITRATE NEGATIVE (NEGATIVE); URINE PROTEIN 30 mg/dL (NEGATIVE); URINE UROBILINOGEN 0.2-1.0 mg/dL (0.2-1.0); WBC CLUMPS RARE /hpf
[2017-07-14 15:31] LABS: URINE BACTERIA MOD (<OCC)
--- NOTE | 2017-07-14 15:58 | CP.PCM.PN ---
Subjective - Date & Time of Evaluation Date of Evaluation: 07/14/17 Time of Evaluation: 08:50 - Subjective Subjective: patient seen and examined with attending Pt states that she did not sleep well last night due to muscle spams had a fever of 101 F last night Denies Cp, SOB, Cough, N/V, abdominal pain passing gas, but has not yet had a BM Objective - Vital Signs/Intake and Output Vital Signs (last 24 hours): Temp Pulse Resp BP Pulse Ox 98.2 F 100 H 20 95/58 L 94 L 07/14/17 07:38 07/14/17 07:38 07/14/17 07:38 07/14/17 07:38 07/14/17 07:38 Intake and Output: 07/14/17 07/14/17 06:59 18:59 Intake Total 240 Balance 240 - Medications Medications: Current Medications Acetaminophen (Tylenol 325mg Tab) 650 mg PO ONCE PRN PRN Reason: Fever >100.4 F Last Admin: 07/13/17 10:17 Dose: 650 mg Albuterol Sulfate (Albuterol 0.083% Inhal [place] (2.5 Mg/3 Ml) Ud) 2.5 mg INH RQ4 PRN PRN Reason: Shortness of Breath Celecoxib (Celebrex) 100 mg PO Q12 [facility] Last Admin: 07/14/17 08:15 Dose: 100 mg Enoxaparin Sodium (Lovenox) 30 mg SC Q12 [facility] PRN Reason: Protocol Last Admin: 07/14/17 08:15 Dose: 30 mg Gabapentin (Neurontin) 600 mg PO HS [facility] Home Med (Patient's Own Medication) 0.5 unit PO DAILY [facility] Hydrochlorothiazide (Microzide) 12.5 mg PO DAILY [facility] Cefazolin Sodium 1 gm/ Sodium (Chloride) 100 mls @ 100 mls/hr IVPB Q8 [facility] Last Admin: 07/14/17 11:40 Dose: 100 mls/hr Sodium Chloride (Sodium Chloride 0.9%) 1,000 mls @ 80 mls/hr IV .[id number] [facility] Stop: 07/15/17 09:42 Last Admin: 07/14/17 11:31 Dose: 80 mls/hr Latanoprost (Xalatan Opht) 1 drop OD HS [facility] Last Admin: 07/13/17 21:07 Dose: 1 drop Losartan Potassium (Cozaar) 100 mg PO DAILY [facility] Metoprolol Tartrate (Lopressor) 50 mg PO BID [facility] Last Admin: 07/14/17 08:38 Dose: 50 mg Ondansetron HCl (Zofran Inj) 4 mg IVP Q6 PRN PRN Reason: Nausea/Vomiting Oxycodone/Acetaminophen (Percocet 5/325 Mg Tab) 1 tab PO Q4 PRN PRN Reason: Pain, moderate (4-7) Stop: 07/15/17 13:32 Last Admin: 07/14/17 14:58 Dose: 1 tab Pantoprazole Sodium (Protonix Ec Tab) 40 mg PO DAILY [facility] Last Admin: 07/14/17 11:33 Dose: 40 mg Pramipexole Dihydrochloride (Mirapex) 0.5 mg PO HS [facility] - Labs Labs: 07/14/17 10:40 07/14/17 04:20 PT 14.8 Seconds (9.8-13.1) H 07/13/17 04:35 INR 1.4 (0.9-1.2) H 07/13/17 04:35 APTT 33.0 Seconds (25.6-37.1) 07/12/17 08:41 - Additional Findings Additional findings: Constitutional Appears: No Acute Distress - ENT Exam ENT Exam: Mucous Membranes Moist - Respiratory Exam Respiratory Exam: Clear to Auscultation Bilateral, NORMAL BREATHING PATTERN - Cardiovascular Exam Cardiovascular Exam: REGULAR RHYTHM, +S1, +S2 - GI/Abdominal Exam GI & Abdominal Exam: Normal Bowel Sounds, Soft. absent: Distended, Guarding, Rigid, Tenderness - Extremities Exam Extremities exam: Positive for: normal inspection. Negative for: pedal edema - Neurological Exam Neurological exam: Alert, Oriented x3 - Psychiatric Exam Psychiatric exam: Normal Affect, Normal Mood - Skin Skin Exam: Dry, Intact, Normal Color Assessment and Plan - Assessment and Plan (Free Text) Assessment: 76 Y/O F S/P Right Robotic total hip replacement on POD #2 Plan: Right Robotic total hip replacement POD#2 was transfer to [facility] febrile -CBC : WBC: leucocytosis -f/u UA and UCx -consider start Abx -c/w home gabapentin, and ropinirole -c/w heart healthy diet -c/w Pain control -c/w incentive spirometer -PT eval and Tx -f/u Ortho recommendations Anemia very mild acute anemia, most likely 2/2 blood loss during surgery Hgb: 11.9 f/u H/H HTN -controlled -BP low -Losartan 100 mg qday. Held for today due to low BP -Hctz 12.5 mg. Held for today due to low BP HLD -Simvastatin 40 mg po daily Hx/o CVA -hx/o R occipital infartct CVA 2012 -no residual deficit Mitral regurgitation -PFO and on warfarin. warfarin hold -Last INR 2.2 2 weeks ago -[facility] [employer] outpatient Germain Escalante SCAR[place] -controlled with CPAP home machine -C/w CPAP DVT prophylaxis -c/w Lovenox 30 mg Sc Q 12h
[2017-07-14] MEDS: Latanoprost 0.005% Opht SOUTION OD SCH (22:00)
[2017-07-15] MEDS: ceFAZolin 1 GM in Sodium Chloride 0.9% 100 ML IVPB SCH ×2 (00:24→09:21)
[2017-07-15 08:47] LABS: HEMOGLOBIN 11.1 g/dL (12.0-16.0); MEAN CELL VOLUME 93.3 fl (81.0-99.0); MEAN CORPUSCULAR HEMOGLOBIN 30.4 pg (27.0-31.0); MEAN CORPUSCULAR HGB CONC 32.5 g/dL (33.0-37.0); RBC 3.65 Mil/uL (3.80-5.20); RED CELL DISTRIBUTION WIDTH 12.9 % (11.5-14.5); WHITE BLOOD COUNT 11.6 K/uL (4.8-10.8)
[2017-07-15 08:59] LABS: BLOOD UREA NITROGEN 22 mg/dl (7-17); CALCIUM 8.6 mg/dL (8.4-10.2); GFR AFRICAN-AMERICAN > 60; GFR NON-AFRICAN AMERICAN > 60
--- NOTE | 2017-07-15 09:03 | CP.PCM.PN ---
Subjective - Date & Time of Evaluation Date of Evaluation: 07/15/17 Time of Evaluation: 08:00 - Subjective Subjective: S/P Right robotic assisted total hip replacement POD#3 Pt seen and examined at bedside, comfortable in bed Pt c/o mild right hip pain and leg spasms due to h/o restless leg syndrome Pt denies any SOB, chest pain, N/V/D, numbness/tingling RLE Objective - Vital Signs/Intake and Output Vital Signs (last 24 hours): Temp Pulse Resp BP Pulse Ox 98.5 F 107 H 20 142/76 96 07/15/17 08:14 07/15/17 08:14 07/15/17 08:14 07/15/17 08:14 07/15/17 08:14 - Medications Medications: Current Medications Acetaminophen (Tylenol 325mg Tab) 650 mg PO ONCE PRN PRN Reason: Fever >100.4 F Last Admin: 07/13/17 10:17 Dose: 650 mg Albuterol Sulfate (Albuterol 0.083% Inhal [place] (2.5 Mg/3 Ml) Ud) 2.5 mg INH RQ4 PRN PRN Reason: Shortness of Breath Atorvastatin Calcium (Lipitor) 20 mg PO DAILY [facility] Celecoxib (Celebrex) 100 mg PO Q12 [facility] Last Admin: 07/14/17 20:18 Dose: 100 mg Enoxaparin Sodium (Lovenox) 30 mg SC Q12 [facility] PRN Reason: Protocol Last Admin: 07/14/17 20:18 Dose: 30 mg Gabapentin (Neurontin) [address] [facility] Last Admin: 07/14/17 22:00 Dose: 600 mg Home Med (Patient's Own Medication) 0.5 unit PO DAILY [facility] Hydrochlorothiazide (Microzide) 12.5 mg PO DAILY [facility] Cefazolin Sodium 1 gm/ Sodium (Chloride) 100 mls @ 100 mls/hr IVPB Q8 [facility] Last Admin: 07/15/17 00:24 Dose: 100 mls/hr Sodium Chloride (Sodium Chloride 0.9%) 1,000 mls @ 80 mls/hr IV .[id number] [facility] Stop: 07/15/17 09:42 Last Admin: 07/14/17 22:28 Dose: Not Given Latanoprost (Xalatan Opht) [address] [facility] Last Admin: 07/14/17 22:00 Dose: 1 drop Losartan Potassium (Cozaar) 100 mg PO DAILY [facility] Metoprolol Tartrate (Lopressor) 50 mg PO BID [facility] Last Admin: 07/14/17 17:14 Dose: 50 mg Ondansetron HCl (Zofran Inj) 4 mg IVP Q6 PRN PRN Reason: Nausea/Vomiting Oxycodone/Acetaminophen (Percocet 5/325 Mg Tab) 1 tab PO Q4 PRN PRN Reason: Pain, moderate (4-7) Stop: 07/15/17 13:32 Last Admin: 07/14/17 20:16 Dose: 1 tab Pantoprazole Sodium (Protonix Ec Tab) 40 mg PO DAILY [facility] Last Admin: 07/14/17 11:33 Dose: 40 mg Pramipexole Dihydrochloride (Mirapex) 0.5 mg PO HS [facility] Last Admin: 07/14/17 22:00 Dose: 0.5 mg - Labs Labs: 07/15/17 07:45 07/14/17 04:20 PT 14.8 Seconds (9.8-13.1) H 07/13/17 04:35 INR 1.4 (0.9-1.2) H 07/13/17 04:35 APTT 33.0 Seconds (25.6-37.1) 07/12/17 08:41 - Constitutional Appears: Well, No Acute Distress - Respiratory Exam Respiratory Exam: Clear to Ausculation Bilateral, NORMAL BREATHING PATTERN - Cardiovascular Exam Cardiovascular Exam: REGULAR RHYTHM, RRR - Extremities Exam Additional comments: RLE: Hip dressing C/D/I Calves soft and compressible b/l, mild ttp right calf N/V intact distally Distal pulses wnl No foot drop Assessment and Plan - Assessment and Plan (Free Text) Assessment: 76 yo F s/p Right robotic assisted total hip replacement POD#3 Plan: S/P Right robotic assisted total hip replacement Pain Control DVT ppx US b/l LE neg for any DVT Adjust meds for restless leg syndrome PT/OT F/U labs Continue current management D/C planning pending PT clearance Discussed with Dr. Cowart
[2017-07-15] MEDS ORDERED: Ciprofloxacin 400mg/200ml D5W 400 MG/200 ML BAG IVPB SCH (09:15)
[2017-07-15] MEDS: Pantoprazole 40 mg EC Tab PO SCH (09:16)
[2017-07-15] MEDS: Enoxaparin 30 mg Syringe SC SCH (09:17)
[2017-07-15] MEDS: Oxycodone/Acetaminophen 5/325 mg Tab PO PRN (09:20)
--- NOTE | 2017-07-15 10:48 | CP.PCM.DIS ---
Provider - Provider Date of Admission: 07/12/17 13:07 Attending physician: Todd Deal MD Primary care physician: Nellie Johnson [facility] Course - Lab Results Lab Results: Micro Results 07/14/17 09:15 Blood Blood Culture - Preliminary NO GROWTH AFTER 24 HOURS Most Recent Lab Values WBC 11.6 K/uL (4.8-10.8) H 07/15/17 07:45 RBC 3.65 Mil/uL (3.80-5.20) L 07/15/17 07:45 Hgb 11.1 g/dL (12.0-16.0) L 07/15/17 07:45 Hct 34.0 % (34.0-47.0) 07/15/17 07:45 MCV 93.3 fl (81.0-99.0) 07/15/17 07:45 MCH 30.4 pg (27.0-31.0) 07/15/17 07:45 MCHC 32.5 g/dL (33.0-37.0) L 07/15/17 07:45 RDW 12.9 % (11.5-14.5) 07/15/17 07:45 Plt Count 186 K/uL (130-400) 07/15/17 07:45 MPV 8.6 fl (7.2-11.7) 07/13/17 04:35 Neut % (Auto) 69.5 % (50.0-75.0) 07/13/17 04:35 Lymph % (Auto) 14.7 % (20.0-40.0) L 07/13/17 04:35 Mcpherson % (Auto) 14.4 % (0.0-10.0) H 07/13/17 04:35 Eos % (Auto) 1.2 % (0.0-4.0) 07/13/17 04:35 Baso % (Auto) 0.2 % (0.0-2.0) 07/13/17 04:35 Neut # 7.3 K/uL (1.8-7.0) H 07/13/17 04:35 Lymph # 1.5 K/uL (1.0-4.3) 07/13/17 04:35 Mcpherson # 1.5 K/uL (0.0-0.8) H 07/13/17 04:35 Eos # 0.1 K/uL (0.0-0.7) 07/13/17 04:35 Baso # 0.0 K/uL (0.0-0.2) 07/13/17 04:35 PT 14.8 Seconds (9.8-13.1) H 07/13/17 04:35 INR 1.4 (0.9-1.2) H 07/13/17 04:35 APTT 33.0 Seconds (25.6-37.1) 07/12/17 08:41 pCO2 51 mm/Hg (35-45) H 07/12/17 13:57 pO2 118 mm/Hg (80-100) H 07/12/17 13:57 HCO3 27.4 mmol/L (21-28) 07/12/17 13:57 ABG pH 7.37 (7.35-7.45) 07/12/17 13:57 ABG Total CO2 31.1 mmol/L (22-28) H 07/12/17 13:57 ABG O2 Saturation 95.9 % (95-98) 07/12/17 13:57 ABG O2 Content 18.1 ML/dL (15-23) 07/12/17 13:57 ABG Base Excess 3.2 mmol/L (-2.0-3.0) H 07/12/17 13:57 ABG Hemoglobin 13.4 g/dL (11.7-17.4) 07/12/17 13:57 ABG Carboxyhemoglobin 0 % (0.5-1.5) L 07/12/17 13:57 POC ABG HHb (Measured) 4.1 % (0.0-5.0) 07/12/17 13:57 ABG Methemoglobin 0.5 % (0.0-3.0) 07/12/17 13:57 ABG O2 Capacity 18.9 mL/dL (16-24) 07/12/17 13:57 Hal Test Yes 07/12/17 13:57 A-a O2 Difference 32.0 mm/Hg 07/12/17 13:57 Hgb O2 Saturation 95.4 % (95.0-98.0) 07/12/17 13:57 FiO2 30.0 % 07/12/17 13:57 CPAP 12 07/12/17 13:57 Sodium 143 mmol/l (132-148) 07/15/17 07:45 Potassium 3.8 MMOL/L (3.6-5.0) 07/15/17 07:45 Chloride 106 mmol/L (98-107) 07/15/17 07:45 Carbon Dioxide 29 mmol/L (22-30) 07/15/17 07:45 Anion Gap 12 (10-20) 07/15/17 07:45 BUN 22 mg/dl (7-17) H 07/15/17 07:45 Creatinine 0.7 mg/dL (0.7-1.2) 07/15/17 07:45 Est GFR ( Amer) > 60 07/15/17 07:45 Est GFR (Non-Af Amer) > 60 07/15/17 07:45 POC Glucose (mg/dL) 130 mg/dL (65-110) H 07/15/17 05:45 Random Glucose 119 mg/dL (65-105) H 07/15/17 07:45 Calcium 8.6 mg/dL (8.4-10.2) 07/15/17 07:45 Total Bilirubin 0.7 mg/dl (0.2-1.3) 07/14/17 04:20 AST 60 U/L (14-36) H 07/14/17 04:20 ALT 29 U/L (9-52) 07/14/17 04:20 Alkaline Phosphatase 83 U/L (38-126) 07/14/17 04:20 Total Protein 5.8 G/DL (6.3-8.2) L 07/14/17 04:20 Albumin 3.1 g/dL (3.5-5.0) L 07/14/17 04:20 Globulin 2.7 gm/dL (2.2-3.9) 07/14/17 04:20 Albumin/Globulin Ratio 1.1 (1.0-2.1) 07/14/17 04:20 Urine Color Yellow (YELLOW) 07/14/17 14:55 Urine Clarity Turbid (Clear) 07/14/17 14:55 Urine pH 6.0 (5.0-8.0) 07/14/17 14:55 Ur Specific Reed 1.012 (1.003-1.030) 07/14/17 14:55 Urine Protein 30 mg/dL (NEGATIVE) 07/14/17 14:55 Urine Glucose (UA) Neg mg/dL (Normal) 07/14/17 14:55 Urine Ketones Negative mg/dL (NEGATIVE) 07/14/17 14:55 Urine Blood Small (NEGATIVE) 07/14/17 14:55 Urine Nitrate Negative (NEGATIVE) 07/14/17 14:55 Urine Bilirubin Negative (NEGATIVE) 07/14/17 14:55 Urine Urobilinogen 0.2-1.0 mg/dL (0.2-1.0) 07/14/17 14:55 Ur Leukocyte Esterase Large Hari/uL (Negative) 07/14/17 14:55 Urine RBC (Auto) 12 /hpf (0-3) H 07/14/17 14:55 Urine WBC Clumps (Auto) Rare /hpf (NONE) H 07/14/17 14:55 Urine Microscopic WBC 536 /hpf (0-5) H 07/14/17 14:55 Ur Squamous Epith Cells 3 /hpf (0-5) 07/14/17 14:55 Urine Bacteria Mod (<OCC) H 07/14/17 14:55 Blood Type O POSITIVE 07/12/17 07:10 Blood Type Confirm O POSITIVE 07/12/17 08:19 Antibody Screen Negative 07/12/17 07:10 Crossmatch See Detail 07/12/17 07:10 BBK History Checked No verified bt 07/12/17 07:10 - Hospital Course Hospital Course: This is a 76 y/o female with OA was admitted for total hip replacement. Discharge Plan - Follow Up Plan Condition: GOOD Disposition: HOME/ ROUTINE Referrals: Nellie Johnson DO [Primary Care Provider] -
[2017-07-15 15:47] VITALS: BP 135/81; PULSE 88; RESP 17; TEMP 98.4; O2SAT 98
[2017-07-15] MEDS ORDERED: Oxycodone/Acetaminophen 5/325 mg Tab PO PRN (15:57)
== END 2017-07-15 17:40 | DRG 470 ==
LOC: H.OPSURG 06:17 → H.ICU/CCU 13:07 → H.MEDSURG1 07-13 17:00
PROVIDERS: ADMIT Family Medicine; ATTEND Family Medicine
PROC: 8E0Y0CZ Robotic Assisted Procedure of Lower Extremity, Open Approach (ICD-10-PCS; 2017-07-12)
PROC: 0SR901Z Replacement of Right Hip Joint with Metal Synthetic Substitute, Open Approach (ICD-10-PCS; principal; 2017-07-12 09:15)
DX: M16.11 Unilateral primary osteoarthritis, right hip (principal); N17.9 Acute kidney failure, unspecified; Q21.1 Atrial septal defect; Z96.642 Presence of left artificial hip joint; D62 Acute posthemorrhagic anemia; I34.0 Nonrheumatic mitral (valve) insufficiency; I10 Essential (primary) hypertension; E78.5 Hyperlipidemia, unspecified; G25.81 Restless legs syndrome; G47.33 Obstructive sleep apnea (adult) (pediatric); Z86.73 Personal history of transient ischemic attack (TIA), and cerebral infarction without residual deficits; E55.9 Vitamin D deficiency, unspecified; Z85.828 Personal history of other malignant neoplasm of skin; F41.9 Anxiety disorder, unspecified; T50.905A Adverse effect of unspecified drugs, medicaments and biological substances, initial encounter; R33.9 Retention of urine, unspecified

== ENCOUNTER 2017-07-27 17:15 | Observation (INO) | payer MEDICARE ==
[2017-07-27 17:16] VITALS: BMI 35.4
--- NOTE | 2017-07-27 18:03 | ED PDOC ---
Lower Extremity Pain/Injury Time Seen by Provider: 07/27/17 17:28 Chief Complaint (Nursing): Lower Extremity Problem/Injury History Per: Patient (was sent by Dr. Cowart for admission after he noted large amount of blood coming out of wound where a THR was done 15 days ago. Patient denies pain or discomfort. In fact, she was just about done with rehab), Other ( Dr. Cowart concerned about infection. Wants her to get one dose of vanco in the ER. He discussed case with PMD Allie) Past Medical History Reviewed: Historical Data, Nursing Documentation, Vital Signs Vital Signs: Last Vital Signs Temp 98.8 F 07/27/17 17:24 Pulse 78 07/27/17 17:24 Resp 18 07/27/17 17:24 BP 154/98 H 07/27/17 17:24 Pulse Ox 99 07/27/17 17:24 - Medical History PMH: Anxiety, Arthritis, Asthma, Bronchitis, Gall Bladder Disease, HTN, Hypercholesterolemia, Sleep Apnea (ON C-PAP), TIA Denies: Anemia, Depression, Chronic Kidney Disease - Surgical History Surgical History: Cholecystectomy, Tonsillectomy Denies: Pacemaker - Family History Family History: States: No Known Family Hx - Home Medications Home Medications: Ambulatory Orders Medication Instructions Recorded Gabapentin [Neurontin] 300 mg PO TID 07/12/17 Irbesartan/Hydrochlorothiazide 1 tab PO DAILY 07/12/17 [Irbesartan-Hctz 300-12.5 mg Tb] Latanoprost 0.005% Opht [Xalatan 1 drp OP HS 07/12/17 Opht] Metoprolol Tartrate [Lopressor] 100 mg PO DAILY 07/12/17 Niacin [Slo-Niacin] 250 mg PO DAILY 07/12/17 Omeprazole 20 mg PO DAILY 07/12/17 Simvastatin [Zocor] 40 mg PO DAILY 07/12/17 Vit A/Vit C/Vit E/Zinc/Copper 1 each PO DAILY 07/12/17 [Preservision Areds Softgel] Warfarin [Coumadin] 3 mg PO DAILY 07/12/17 rOPINIRole [Requip] 0.5 mg PO HS 07/12/17 traMADol [Ultram] 50 mg PO TID 07/12/17 Celecoxib [celeBREX] 100 mg PO Q12 cap 07/15/17 Ciprofloxacin [Cipro] 500 mg PO BID #10 tab 07/15/17 Enoxaparin [Lovenox] 30 mg SC Q12 syr 07/15/17 Pantoprazole [Protonix EC Tab] 40 mg PO DAILY ect 07/15/17 oxyCODONE/Acetaminophen [Percocet 1 tab PO Q4 PRN #10 tab 07/15/17 5/325 mg Tab] - Allergies Allergies/Adverse Reactions: Allergies Allergy/AdvReac Type Severity Reaction Status Date / Time No Known Allergies Allergy Verified 08/01/12 14:34 Review of Systems ROS Statement: Except As Marked, All Systems Reviewed And Found Negative Physical Exam - Reviewed Nursing Documentation Reviewed: Yes Vital Signs Reviewed: Yes - Physical Exam Appears: Positive for: Well, Non-toxic, No Acute Distress Head Exam: Positive for: ATRAUMATIC, NORMAL INSPECTION, NORMOCEPHALIC Skin: Positive for: Normal Color (blood stained bandage and clothing. Patient seen by Dr. Cowart in the ED), Warm Eye Exam: Positive for: EOMI, Normal appearance, PERRL ENT: Positive for: Normal ENT Inspection Neck: Positive for: Normal, Painless ROM Cardiovascular/Chest: Positive for: Regular Rate, Rhythm Respiratory: Positive for: CNT, Normal Breath Sounds Gastrointestinal/Abdominal: Positive for: Normal Exam, Bowel Sounds, Soft Back: Positive for: Normal Inspection Extremity: Positive for: Normal ROM Neurologic/Psych: Positive for: Alert, Oriented - ECG O2 Sat by Pulse Oximetry: 99 Disposition - Clinical Impression Clinical Impression: Bleeding from wound - Patient ED Disposition Is Patient to be Admitted: Yes Doctor Will See Patient In The: Hospital - Disposition Disposition: Routine/Home Disposition Time: 17:45 Condition: STABLE Forms: Tellja (Chinese) - Pt Status Changed To: Hospital Disposition Of: Observation - POA Present On Arrival: None, Surgical Site Infection
[2017-07-27 18:44] LABS: BLOOD UREA NITROGEN 20 mg/dl (7-17); CALCIUM 9.2 mg/dL (8.4-10.2); CARBON DIOXIDE 30 mmol/L (22-30); CHLORIDE 100 mmol/L (98-107); GFR AFRICAN-AMERICAN > 60; GLUCOSE,RANDOM 118 mg/dL (65-105); POTASSIUM 4.3 MMOL/L (3.6-5.0); SODIUM 138 mmol/l (132-148)
[2017-07-27 18:47] LABS: BASO % 0.6 % (0.0-2.0); EOS # 0.4 K/uL (0.0-0.7); EOS % 4.5 % (0.0-4.0); HEMATOCRIT 36.5 % (34.0-47.0); LYMPH # 1.8 K/uL (1.0-4.3); LYMPH % 20.5 % (20.0-40.0); MEAN CELL VOLUME 93.7 fl (81.0-99.0); MEAN CORPUSCULAR HGB CONC 33.1 g/dL (33.0-37.0); MONO # 1.1 K/uL (0.0-0.8); MONO % 12.9 % (0.0-10.0); NEUT # 5.3 K/uL (1.8-7.0); NEUT % 61.5 % (50.0-75.0); RED CELL DISTRIBUTION WIDTH 13.8 % (11.5-14.5); WHITE BLOOD COUNT 8.7 K/uL (4.8-10.8)
[2017-07-27 18:54] LABS: PARTIAL THROMBOPLASTIN TIME 35.7 Seconds (25.6-37.1)
[2017-07-27] MEDS ORDERED: Oxycodone/Acetaminophen 5/325 mg Tab PO PRN (23:22)
--- NOTE | 2017-07-28 03:34 | CON ---
DATE: 07/27/2017 ER CONSULTATION NOTE HISTORY OF PRESENT ILLNESS: Patient is a 76-year-old female who is 2 weeks status post right total hip replacement. Patient was doing well, had uncomplicated postoperative course, currently in rehab here for her first postop followup visit. On physical examination in the office, patient had accumulation of hematoma and serosanguineous wound drainage. I had recommended the patient to come to the emergency room for IV antibiotics and wound care. Currently, the patient is seen at bedside, she is comfortable. No fever or chills. Labs are pending. Denies any paresthesia or motor weakness. PHYSICAL EXAMINATION Examination of patient's right hip wound, there is bloody drainage from the proximal aspect of the wound, no erythema, no ecchymosis, no evidence of infection. The hematoma is expressed and drained. The paige are reapplied on the proximal incision. The patient is neurovascularly intact distally. ASSESSMENT AND PLAN: A 76-year-old female with persistent hematoma drainage, secondary to anticoagulant postop right total hip replacement treatment. I instructed the patient as a cautionary measure should be admitted and put on prophylactic antibiotics. The deep vein thrombosis prophylaxis, daily dressing changes, and once the patient's wound is dry, she will be discharged back to rehab facility. Roseann Cowart MD
[2017-07-28 07:26] VITALS: TEMP 98.3
[2017-07-28] MEDS ORDERED: Patient's Own Med (Irbesartan/Hydrochlorothiazide [Irbesartan-Hctz 300-12.5 Mg Tb] 1 TAB) PO SCH (09:00)
[2017-07-28] MEDS ORDERED: Pantoprazole 40 mg EC Tab PO SCH ×2 (09:00)
[2017-07-28] MEDS ORDERED: Multivitamin With Minerals Tab PO SCH (09:00)
--- NOTE | 2017-07-28 13:23 | CP.PCM.PCO ---
Assessment/Plan - Assessment/Plan Assessment (Free Text): Assessed pt's wound site, ni bleeding or discharge noted. Dressing dry/intact. Dressing changed by RN. Pt experesses [facility] Discussed with Dr. Cowart, pt can be sent back to rehab on vanco IX x 1 week, Keflex PO and ASA 325mg daily. Pt, RN and SW aware of plan. - Consults Consult Orders: Consultations 07/28/17 09:00 Case Management Referral Routine Comment: Physician Instructions: Reason For Exam: transfer from [facility] Reason for Referral: Discharge Planning Nursing Referral for Wound Care Routine Comment: Physician Instructions: Reason For Exam: R hip wound/hematoma Social Work Referral Routine Comment: transfer from rehab Physician Instructions: Reason For Exam: transfer from [facility] - Problems Patient Problems: Problem List (Active/Current) Problem Status Onset Code Bleeding from wound Acute T14.8
[2017-07-28 15:58] VITALS: BP 136/79; PULSE 78; RESP 20; O2SAT 95
--- NOTE | 2017-07-28 17:30 | CP.PCM.HP ---
History of Present Illness - History of Present Illness History of Present Illness: Patient was sent yesterday by Dr. Cowart for admission after he noted large amount of blood coming out of wound where a THR was done 15 days ago. Patient denies pain or discomfort. Patient was just about done with rehab. As per ED's report Dr. Cowart was concerned about infection and wants her to get one dose of vanco in the ER. Patient seen and examined with attending Patient denies Cp, SOB, N/V, abdominal pain or other complains Feeling well and wants to go back to [facility] Present on Admission - Present on Admission Any Indicators Present on Admission: No History of DVT/PE: No History of Uncontrolled Diabetes: No Urinary Catheter: No Decubitus Ulcer Present: No Review of Systems - Review of Systems All systems: reviewed and no additional remarkable complaints except (as per HPI ) Past Patient History - Tetanus Immunizations Tetanus Immunization: Unknown - Past Medical History & Family History Past Medical History?: Yes - Past Social History Smoking Status: Never Smoked - CARDIAC Hx Cardiac Disorders: Yes Hx Hypercholesterolemia: Yes Hx Hypertension: Yes Hx Pacemaker: No Other/Comment: SVT w/ablation 5yrs ago - PULMONARY Hx Respiratory Disorders: Yes Hx Asthma: Yes Hx Bronchitis: Yes Hx Sleep Apnea: Yes (ON C-PAP) - NEUROLOGICAL Hx Neurological Disorder: Yes Hx Transient Ischemic Attacks (TIA): Yes (5ys ago, started on coumadin by ) - HEENT Hx HEENT Problems: Yes Hx Glaucoma: Yes Other/Comment: wears eyeglasses - RENAL Hx Chronic Kidney Disease: No - ENDOCRINE/METABOLIC Hx Endocrine Disorders: No Hx Diabetes Mellitus Type 2: No (denies) - HEMATOLOGICAL/ONCOLOGICAL Hx Blood Disorders: No Hx AIDS: No Hx Anemia: No Hx Human Immunodeficiency Virus (HIV): No - INTEGUMENTARY Hx Dermatological Problems: No - MUSCULOSKELETAL/RHEUMATOLOGICAL Hx Musculoskeletal Disorders: Yes Hx Arthritis: Yes Hx Falls: No Hx Osteoarthritis: Yes - GASTROINTESTINAL Hx Gastrointestinal Disorders: Yes Hx Gall Bladder Disease: Yes - GENITOURINARY/GYNECOLOGICAL Hx Genitourinary Disorders: No - PSYCHIATRIC Hx Psychophysiologic Disorder: Yes Hx Anxiety: Yes Hx Substance Use: No - SURGICAL HISTORY Hx Surgeries: Yes Hx Cholecystectomy: Yes Hx Orthopedic Surgery: Yes (LTHR 1998, and RTH 07/12/17) Hx Tonsillectomy: Yes - ANESTHESIA Hx Anesthesia: Yes Hx Anesthesia Reactions: No Hx Malignant Hyperthermia: No Meds Home Medications: Home Medication List Medication Instructions Recorded Confirmed Type Aspirin 325 mg PO DAILY tab 07/28/17 Rx Cephalexin [cephalexin] 500 mg PO Q8 #21 cap 07/28/17 Rx Vancomycin 1 GM [Vancomycin 1GM in 1 gm IVPB DAILY #7 bag 07/28/17 Rx Normal Saline Addvantage] Allergies/Adverse Reactions: Allergies Allergy/AdvReac Type Severity Reaction Status Date / Time No Known Allergies Allergy Verified 07/27/17 20:06 Physical Exam - Constitutional Appears: No Acute Distress - ENT Exam ENT Exam: Mucous Membranes Moist - Respiratory Exam Respiratory Exam: Clear to Auscultation Bilateral, NORMAL BREATHING PATTERN - Cardiovascular Exam Cardiovascular Exam: REGULAR RHYTHM, +S1, +S2 - GI/Abdominal Exam GI & Abdominal Exam: Normal Bowel Sounds, Soft. absent: Distended, Firm, Guarding, Tenderness - Extremities Exam Extremities exam: Positive for: normal inspection. Negative for: calf tenderness, pedal edema - Neurological Exam Neurological exam: Alert, Oriented x3 Results - Vital Signs Recent Vital Signs: Last Vital Signs Temp 98.3 F 07/28/17 15:57 Pulse 78 07/28/17 15:57 Resp 20 07/28/17 15:57 BP 136/79 07/28/17 15:57 Pulse Ox 95 07/28/17 15:57 - Labs Result Diagrams: 07/27/17 18:25 07/27/17 18:25 Labs: Laboratory Results - last 24 hr 07/27/17 07/27/17 07/27/17 18:25 18:25 18:25 WBC 8.7 RBC 3.90 Hgb 12.1 Hct 36.5 MCV 93.7 MCH 31.0 MCHC 33.1 RDW 13.8 Plt Count 308 D MPV 8.0 Neut % (Auto) 61.5 Lymph % (Auto) 20.5 Lincoln % (Auto) 12.9 H Eos % (Auto) 4.5 H Baso % (Auto) 0.6 Neut # 5.3 Lymph # 1.8 Lincoln # 1.1 H Eos # 0.4 Baso # 0.0 PT 20.9 H INR 2.0 H APTT 35.7 Sodium 138 Potassium 4.3 Chloride 100 Carbon Dioxide 30 Anion Gap 12 BUN 20 H Creatinine 0.7 Est GFR ( Amer) > 60 Est GFR (Non-Af Amer) > 60 Random Glucose 118 H Calcium 9.2 Assessment & Plan (1) Status post total hip replacement, right Status: Acute Comment: w/ possible Hematoma. H/H :WNL. Started on Vanco. no leukocytosis. f/u Dr. Cowart rec (2) Hypertension Status: Chronic (3) Hyperlipidemia Status: Chronic - Date & Time Date: 07/28/17 Time: 09:20
[2017-07-28] MEDS ORDERED: Latanoprost 0.005% Opht SOUTION OD SCH (22:00)
[2017-07-28] MEDS ORDERED: ROPINIROLE 0.5 MG PO SCH (22:00)
--- NOTE | 2017-07-29 00:09 | CARD ---
APPROVED REPORT EKG Measurement Heart [id number] <Conclusion> Normal sinus rhythm Normal ECG
== END 2017-07-28 18:44 ==
LOC: H.ER 17:15 → H.ERHOLD 17:53 → H.MEDSURG1 22:20
PROVIDERS: ADMIT Family Medicine; ATTEND Family Medicine
DX: L76.32 Postprocedural hematoma of skin and subcutaneous tissue following other procedure (principal); Y83.8 Other surgical procedures as the cause of abnormal reaction of the patient, or of later complication, without mention of misadventure at the time of the procedure; T45.515A Adverse effect of anticoagulants, initial encounter; Z96.641 Presence of right artificial hip joint; Z86.73 Personal history of transient ischemic attack (TIA), and cerebral infarction without residual deficits; E78.5 Hyperlipidemia, unspecified; J45.909 Unspecified asthma, uncomplicated; I10 Essential (primary) hypertension; G47.30 Sleep apnea, unspecified; F41.9 Anxiety disorder, unspecified; E78.00 Pure hypercholesterolemia, unspecified; M19.90 Unspecified osteoarthritis, unspecified site
CPT/HCPCS: 80048; 85025; 85610; 85730; 96365; 96366; 97161; 99285; G0378; G8978; G8979

== ENCOUNTER 2018-04-11 06:31 | Inpatient (IN) | payer MEDICARE ==
[2018-04-11 08:20] LABS: INR 1.2 (0.9-1.2); PROTHROMBIN TIME 12.8 Seconds (9.8-13.1)
[2018-04-11 08:21] LABS: PARTIAL THROMBOPLASTIN TIME 31.5 Seconds (25.6-37.1)
[2018-04-11 08:25] LABS: HEMOGLOBIN 15.5 g/dL (12.0-16.0); MEAN CELL VOLUME 91.4 fl (81.0-99.0); MEAN CORPUSCULAR HEMOGLOBIN 30.8 pg (27.0-31.0); MEAN CORPUSCULAR HGB CONC 33.7 g/dL (33.0-37.0); RBC 5.03 Mil/uL (3.80-5.20); RED CELL DISTRIBUTION WIDTH 13.9 % (11.5-14.5); WHITE BLOOD COUNT 9.9 K/uL (4.8-10.8)
[2018-04-11 08:47] VITALS: BMI 36.1
[2018-04-11] MEDS ORDERED: Etomidate 20 mg/10ml Inj IV ONE (09:08)
[2018-04-11] MEDS ORDERED: Rocuronium 10 mg/ml (5 ml) ONE (09:10)
[2018-04-11] MEDS ORDERED: Succinylcholine 200 mg/10 ml Inj IV ONE (09:10)
[2018-04-11] MEDS ORDERED: Lidocaine 4% (Laryng-O-Jet) Kit MM ONE (09:10)
[2018-04-11] MEDS ORDERED: Phenylephrine 10 mg/ml Inj ONE (09:12)
[2018-04-11] MEDS ORDERED: Neostigmine 1:1000 (1 mg/ml) Inj ONE (09:23)
[2018-04-11] MEDS ORDERED: Propofol 10 mg/ml Inj (20 ML) ONE ×3 (10:11→12:01)
[2018-04-11] MEDS ORDERED: Lactated Ringer's 1,000 ML IV ONE ×2 (10:15→11:30)
[2018-04-11] MEDS ORDERED: Midazolam 2 MG/2 ML VIAL ONE ×2 (10:18→10:41)
[2018-04-11] MEDS ORDERED: Morphine 1 mg/ml preservative-free Inj(Duramorph) ONE ×2 (10:18→11:16)
[2018-04-11] MEDS ORDERED: EPINEPHrine 1 mg/ml (1:1000) Inj ONE (11:16)
[2018-04-11] MEDS ORDERED: Bupivacaine HCl 0.5% PF (30 ml) Inj ONE (11:16)
[2018-04-11] MEDS ORDERED: Bupivacaine HCl 0.25% PF (30 ml) Inj IJ ONE (11:34)
[2018-04-11] MEDS ORDERED: EPINEPHrine 1 mg/ml (1:1000) Inj IV ONE ×2 (11:35→11:48)
[2018-04-11] MEDS ORDERED: Bupivacaine 0.5% Inj(30mL) IJ ONE (11:48)
[2018-04-11] MEDS ORDERED: Lactated Ringer's 500 ML IV ONE (12:30)
[2018-04-11] MEDS ORDERED: HYDROmorphone 0.5 mg/0.5 ml ISec IVP PRN (12:54)
--- NOTE | 2018-04-11 14:53 | RAD ---
PROCEDURE: Left Knee Radiographs. HISTORY: Pain. COMPARISON: Knee radiographs dated 03/14/2018. FINDINGS: The patient is status post total left knee arthroplasty with prosthetic components seen in good alignment. A small amount expected air and fluid is seen within suprapatellar bursa. IMPRESSION: Status post total left knee arthroplasty.
--- NOTE | 2018-04-11 15:03 | OP ---
PROCEDURE DATE: 04/11/2018 PREOPERATIVE DIAGNOSIS: Left knee osteoarthritis. POSTOPERATIVE DIAGNOSIS: Left knee osteoarthritis. PROCEDURE: Left total knee replacement. ATTENDING PHYSICIAN: Roseann Cowart MD PROGRAM THERAPIST: Orion Hinojosa PA-C IMPLANTS SIZE: [employer] size 3 femur, size 2 tibial baseplate, 29 mm patella, 11 mm polyethylene insert. ANESTHESIA TYPE: Spinal and sedation. ESTIMATED BLOOD LOSS: 50 mL. COMPLICATIONS: None. HISTORY: The patient with prolonged history of left knee pain progressively getting worse despite extensive conservative management, which included activity modification, injections, anti-inflammatory modification and physical therapy. X-rays had revealed advanced arthritis. Patient was indicated for total knee replacement due to continued pain and limited mobility. I had a detailed discussion with the patient in the office explaining the nature of the surgery, alternatives of surgery, risks and benefits, rehabilitation protocol and surgical markings. Risks of surgery include but not limited to continued pain, lack of motion, infection, vascular injury, DVT / PE, nerve injury including peroneal nerve dysfunction, reflex sympathetic dystrophy, compartment syndrome, unforeseen medical and/or anesthesia complications, limb loss, and even . The patient expressed an understanding of the risks and possible benefits of the procedure, and is also aware of the alternatives to surgery. PROCEDURE: On the day of the surgery, the patient was admitted to pre-operative holding area. A laterality sheet was completed confirming the correct operative site. The correct surgical knee was marked in the holding area and informed consent was signed from the patient. Once again, I reviewed the risks and benefits of the surgery with the patient in detail. These risks include but are not limited to continued pain, lack of motion, infection, vascular injury, DVT / PE, nerve injury including peroneal nerve dysfunction, reflex sympathetic dystrophy, symptomatic hardware, need for further procedure and surgeries, instability, iatrogenic fractures, compartment syndrome, unforeseen medical and/or anesthesia complications, limb loss, and even . The patient expressed an understanding of the risks and possible benefits of the procedure, also aware of the alternatives to surgery and signed the informed consent. The patient was transported to the operating room and placed in the supine position, general anesthesia was obtained. Exam under anesthesia revealed, range of motion 0-120, stable to varus and valgus stress. A padded tourniquet was applied to patient's operative thigh and appropriate prophylactic antibiotics were given. The operative leg was draped and prepped in standard sterile manner. Timeout was completed, confirming patient's left knee to be the correct operative site. Using an Esmarch, the extremity was exsanguinated and tourniquet was inflated to 350 mmHg. The surgical incision markings were made using patella border, tibial tubercle, patella and quadriceps tendon. Using a 10 blade, a midline incision was made. Skin dissection was taken until the prepatellar fascia was identified and the corners of the patellar tendon were marked for proper closure at the end of the procedure. Using a fresh 10 blade, a medial parapatellar arthrotomy was performed. The knee was exposed in the standard manner. The deep MCL was elevated for exposure, medial and lateral menisci were removed, ACL and PCL were also transected. The tibia was subluxed anteriorly. Planned tibial cut was made with power saw, using extra-medullary guide, perpendicular to mechanical axis of the tibia. After the cut was made, the alignment was also checked and was found to be appropriate. Tibial cut surface was measured with trial base plate and it was noted that size 2 tibial baseplate was provide sufficient coverage without overhang. Tibial component was externally rotated and marked. Next, the knee was placed into 90 degrees of flexion. A drill hole was made within the femoral notch anterior to PCL insertion for placement of intramedullary femoral colin. Intramedullary femoral colin was inserted within the femoral canal and planned distal femoral cut was made. After the cut, knee was brought into full extension. Spacer blocks were used to check the extension balancing both in full extension and 30 degrees of flexion. It was found that 11 mm trial spacer block allowed full extension with symmetric varus and valgus balancing. Next we proceed with Patella resurfacing. Patella width was found to size 24 width patella. Using the free-hand technique the arthritic patella surface was resected. Patella was sized using the guide and it was noted that patella button size was 29 mm. Patella dome button would be appropriate for the patient. Next the size of femoral component was determined using the posterior referencing guide. It was noted that a size 3 femoral implant femur would be appropriate for this patient without causing any significant notching. A 4 x 1 cutting block was placed and flexion gap balancing was checked. The flexion gap was found to be symmetric to the extension gap. Anterior and posterior condyle, anterior and posterior chamfer cuts were made. Next, appropriate size box cut for femoral component was prepared using the guide. The femoral trial component was impacted onto the distal femur. Appropriate size tibial trial component was also placed on the cut surface of the tibia. Using the drill and punch, keel for tibial implant was prepared. Trial tibial tray was secured onto the tibia using pins. Different size trial polyethylene inserts were secured on to the trial tibial tray to critically assess the following parameters: Full range of motion, extension and flexion gap balancing, mid-flexion stability, anterior and posterior drawer, and patellar tracking. All parameter were found to be satisfactory with 11 mm polyethylene insert. All the trial components were removed. Implants were opened on the back table. Cement was mixed and we proceed with cement fixation of the implants. Tibial tray, femoral component and patellar dome button were secured with cement. Polyethylene insert was secured onto the tibial tray using locking mechanism. The knee was reduced and brought into full extension. Cement was allowed to harden until final component fixation. Knee was taken through the final range of motion for stability testing, and found to be satisfactory. 60 cc of custom cocktail mixture was injected into posterior capsule, MCL, LCL, quadriceps tendon, and patellar tendon. Wound was copiously irrigated with sterile antibiotic solution using pulse lavage. Arthrotomy was closed using heavy suture and wound was closed in standard manner. Patient was extubated, transferred to stretcher and taken to the recovery room. Post-operative instructions were provided, physical therapy consult was requested along with DVT prophylaxis and appropriate pain medications. During this procedure, I was assisted by Orion Hinojosa PA-C, who assisted in positioning the patient on the operating room table as well as transferring the patient from the operating room table to the recovery room stretcher. In addition, Orion Hinojosa PA-C assisted me during the actual operative procedure by positioning, protecting critical neurovascular structures, exposure of the joint, and proper positioning of the implants. The presence of Orion Hinojoas PA-C as my operative technology assistant was medically necessary to ensure the utmost safety of the patient in the pre, intra-, and post-operative periods. Due to the patient's morbid obesity, this procedure was more difficult than a standard knee arthroscopy. This required extra time during prepping and draping, as well as an extended operative time. The length of the case was prolonged due to these factors by 50%. Roseann Cowart MD [facility] # [id number]
--- NOTE | 2018-04-11 15:50 | PCM.SURG1 ---
Surgeon's Initial Post Op Note - Surgeon's Notes Surgeon: Roseann Cowart MD Garment Sewing Machine Operator: Orion Hinojosa PA-C; Sadaf Mars Type of Anesthesia: General Endo, Spinal Pre-Operative Diagnosis: Left knee advanced osteoarthritis Operative Findings: see op report Post-Operative Diagnosis: same as pre-op dx Operation Performed: LTKR Specimen/Specimens Removed: left knee bone and soft tissue Estimated Blood Loss: EBL {In ML}: 200 Date of Surgery/Procedure: 04/11/18 Time of Surgery/Procedure: 10:30
[2018-04-11] MEDS ORDERED: Oxycodone/Acetaminophen 5/325 mg Tab PO PRN (15:54)
[2018-04-11] MEDS ORDERED: DiphenhydrAMINE 50 mg/ml Inj IVP STA (16:04)
--- NOTE | 2018-04-11 16:08 | CP.PCM.HP ---
History of Present Illness - History of Present Illness History of Present Illness: 76 yo ,f, Phx/o HTN, HLD, SCARLET, Skin Ca, CVA 2012, anxiety, vit D deficiency, Mitral regurgitation and PFO(patent foramen ovale) with Coumadin treatment, Left hip replacement 18 years ago, who has been c/o left knee pain that has been progressively getting worse despite conservative management, and patient has opted for surgical treatment due to continued pain and limited mobility. Patient has been taking Coumadin and reports she stopped 5 days ago. Patient seen after surgery AAO x 3 and reports pain tolerated with medications. She denies chest pain,SOB,n,v, abd pain. Able to move 4 ext. Present on Admission - Present on Admission Any Indicators Present on Admission: No History of DVT/PE: No History of Uncontrolled Diabetes: No Urinary Catheter: No Decubitus Ulcer Present: No Review of Systems - Review of Systems All systems: reviewed and no additional remarkable complaints except - Musculoskeletal Additional comments: left knee pain , limited ROM due to pain Past Patient History - Tetanus Immunizations Tetanus Immunization: Unknown - Past Medical History & Family History Past Medical History?: Yes - Past Social History Smoking Status: Never Smoked - CARDIAC Hx Cardiac Disorders: Yes Hx Circulatory Problems: Yes (LEFT LEG PHERIPHERAL NEUROPATHY/NUMBNESS) Hx Hypercholesterolemia: Yes Hx Hypertension: Yes Hx Pacemaker: No Other/Comment: SVT w/ablation 5yrs ago - PULMONARY Hx Respiratory Disorders: Yes Hx Bronchitis: Yes Hx Sleep Apnea: Yes (ON C-PAP) - NEUROLOGICAL Hx Neurological Disorder: Yes Hx Paralysis: No Hx Transient Ischemic Attacks (TIA): Yes (5ys ago, started on coumadin by ) Other/Comment: HX OF VERY LIGHT STROKE -NO RESIDUAL -5 YEARS AGO. LEG JERKS BOTH. RESTLESS LEG SYNDROME - HEENT Hx HEENT Problems: Yes Hx Glaucoma: Yes (BOTH) Other/Comment: wears eyeglasses - RENAL Hx Chronic Kidney Disease: No Other/Comment: ENLARGED RIGHT KIDNEY SINCE - ENDOCRINE/METABOLIC Hx Endocrine Disorders: No Hx Diabetes Mellitus Type 2: No (denies) - HEMATOLOGICAL/ONCOLOGICAL Hx Blood Disorders: No Hx AIDS: No Hx Anemia: No Hx Blood Transfusions: No Hx Blood Transfusion Reaction: No Hx Human Immunodeficiency Virus (HIV): No - INTEGUMENTARY Hx Dermatological Problems: No Hx Basil Cell: Yes (CA OF SKIN) - MUSCULOSKELETAL/RHEUMATOLOGICAL Hx Musculoskeletal Disorders: Yes Hx Arthritis: Yes (hips) Hx Degenerative Joint Disease: Yes Hx Falls: No Hx Osteoarthritis: Yes Hx Spinal Stenosis: Yes (lumbar) Hx Unsteady Gait: Yes (CANE FOR AMBULATION) Other/Comment: OSTEOPENIA - GASTROINTESTINAL Hx Gastrointestinal Disorders: Yes Hx Fatty Liver Disease: Yes Hx Gall Bladder Disease: Yes Hx Gastroesophageal Reflux: Yes Other/Comment: HEMORRHOIDS,CHOLECYSTECTOMY,HIATAL HERNIA - GENITOURINARY/GYNECOLOGICAL Hx Genitourinary Disorders: No - PSYCHIATRIC Hx Emotional Abuse: No Hx Physical Abuse: No - SURGICAL HISTORY Hx Surgeries: Yes Hx Cholecystectomy: Yes Hx Joint Replacement: Yes (LEFT TOTAL HIP REPLACEMENT 1998) Hx Orthopedic Surgery: Yes (LTHR 1998, and RTH 07/12/17) Hx Tonsillectomy: Yes Other/Comment: LEFT TOTAL HIP-1998;GALLBLADDER SURGERY;HEART ABLATION-SEVERE SVT -8-YEARS AGO;TONSILLECTOMY - ANESTHESIA Hx Anesthesia: Yes Hx Anesthesia Reactions: No Hx Malignant Hyperthermia: No Has any member of the family had a problem w/ anesthesia?: No Meds Allergies/Adverse Reactions: Allergies Allergy/AdvReac Type Severity Reaction Status Date / Time No Known Allergies Allergy Verified 04/11/18 08:47 Physical Exam - Constitutional Appears: Non-toxic, No Acute Distress - Head Exam Head Exam: ATRAUMATIC, NORMOCEPHALIC - Eye Exam Eye Exam: Normal appearance - ENT Exam ENT Exam: Mucous Membranes Moist - Neck Exam Neck exam: Positive for: Normal Inspection - Respiratory Exam Respiratory Exam: Clear to Auscultation Bilateral. absent: Rhonchi, Wheezes - Cardiovascular Exam Cardiovascular Exam: REGULAR RHYTHM, +S1, +S2 - GI/Abdominal Exam GI & Abdominal Exam: Normal Bowel Sounds, Soft. absent: Tenderness - Extremities Exam Extremities exam: Positive for: normal capillary refill Additional comments: left knee: dressing c/D/I. distal toes ROM normal, capillary refill less 3 sec - Neurological Exam Neurological exam: Alert, Oriented x3 - Psychiatric Exam Psychiatric exam: Normal Affect, Normal Mood - Skin Skin Exam: Normal Color Results - Vital Signs Recent Vital Signs: Last Vital Signs Temp 98.4 F 04/11/18 15:35 Pulse 74 04/11/18 15:35 Resp 18 04/11/18 15:35 BP 94/63 L 04/11/18 15:35 Pulse Ox 97 04/11/18 15:35 - Labs Result Diagrams: 04/11/18 07:50 Labs: Laboratory Results - last 24 hr 04/11/18 04/11/18 04/11/18 07:50 07:50 07:50 WBC 9.9 RBC 5.03 Hgb 15.5 D Hct 45.9 MCV 91.4 D MCH 30.8 MCHC 33.7 RDW 13.9 Plt Count 226 PT 12.8 INR 1.2 APTT 31.5 Blood Type O POSITIVE Antibody Screen Negative BBK History Checked Patient has bt Assessment & Plan - Assessment and Plan (Free Text) Plan: Assessment/Plan 1) Left knee pain s/p left knee total replacement POD #0 -c/w pain medications -IV fluids, Abx 2) HTN -controlled -c/w with home meds according to BP parameters 3) HLD -c/w Simvastatin 40 mg po daily. To start tomorrow 4) Hx/o CVA -hx/o R occipital infartct CVA 2012 -no residual deficit 5) Mitral regurgitation -PFO and on warfarin. warfarin hold for surgery 5 days ago 6) SCARLET -controlled with CPAP home machine -C/w CPAP 7) DVT prophylaxis -will resume lovenox tomorrow night
[2018-04-11] MEDS ORDERED: ceFAZolin 1 GM in Sodium Chloride 0.9% 100 ML IVPB ONE (18:00)
[2018-04-11] MEDS: Oxycodone/Acetaminophen 5/325 mg Tab PO PRN (20:18)
[2018-04-11] MEDS ORDERED: DiphenhydrAMINE 50 mg/ml Inj IVP PRN (20:45)
[2018-04-11] MEDS ORDERED: ROPINIROLE 0.5 MG PO SCH (20:45)
[2018-04-11] MEDS: oxyCODONE 10 mg ER Tab (oxyCONTIN) PO SCH (22:23)
[2018-04-11] MEDS: Latanoprost 0.005% Opht SOUTION OU SCH (22:26)
[2018-04-12] MEDS ORDERED: ceFAZolin 1 GM in Sodium Chloride 0.9% 100 ML IVPB ONE (02:00)
[2018-04-12] MEDS: Lactated Ringer's 1,000 ML IV SCH ×3 (02:01→19:00)
[2018-04-12] MEDS: Oxycodone/Acetaminophen 5/325 mg Tab PO PRN ×2 (02:19→17:46)
[2018-04-12 06:51] LABS: ALB/GLOB RATIO 1.1 (1.0-2.1); ALBUMIN 3.2 g/dL (3.5-5.0); CALCIUM 8.3 mg/dL (8.4-10.2); GFR AFRICAN-AMERICAN > 60; GFR NON-AFRICAN AMERICAN > 60; HDL CHOLESTEROL 35 MG/DL (30-70)
[2018-04-12 07:01] LABS: LDL CHOLESTEROL 49 mg/dL (0-129)
[2018-04-12 07:34] LABS: BASO % 0.3 % (0.0-2.0); EOS # 0.1 K/uL (0.0-0.7); EOS % 1.1 % (0.0-4.0); HEMOGLOBIN 13.1 g/dL (12.0-16.0); LYMPH # 1.6 K/uL (1.0-4.3); LYMPH % 17.5 % (20.0-40.0); MEAN CELL VOLUME 93.2 fl (81.0-99.0); MEAN CORPUSCULAR HEMOGLOBIN 31.1 pg (27.0-31.0); MEAN CORPUSCULAR HGB CONC 33.3 g/dL (33.0-37.0); MONO # 1.7 K/uL (0.0-0.8); MONO % 17.6 % (0.0-10.0); NEUT % 63.5 % (50.0-75.0); NRBC % 0.1 % (0.0-0.0); RBC 4.22 Mil/uL (3.80-5.20); WHITE BLOOD COUNT 9.4 K/uL (4.8-10.8)
[2018-04-12 07:37] LABS: ALT/SGPT 102 U/L (9-52); AST/SGOT 123 U/L (14-36); BLOOD UREA NITROGEN 24 mg/dl (7-17)
[2018-04-12] MEDS: oxyCODONE 10 mg ER Tab (oxyCONTIN) PO SCH (08:47)
--- NOTE | 2018-04-12 09:04 | CP.PCM.PN ---
Subjective - Date & Time of Evaluation Date of Evaluation: 04/12/18 Time of Evaluation: 08:30 - Subjective Subjective: S/P LTKR POD#1 Pt seen and examined at bedside, comfortable in bed Pt c/o mild left knee pain, currently well controlled Pt denies any SOB, chest pain, N/V/D, numbness/tingling to LLE Objective - Vital Signs/Intake and Output Vital Signs (last 24 hours): Temp Pulse Resp BP Pulse Ox 98.4 F 99 H 20 104/66 95 04/12/18 08:14 04/12/18 08:50 04/12/18 08:14 04/12/18 08:50 04/12/18 08:14 - Medications Medications: Current Medications Acetaminophen (Tylenol 325mg Tab) 325 mg PO Q4 PRN PRN Reason: pain1-3 Calcium Carbonate (Oscal) 500 mg PO DAILY [facility] Last Admin: 04/12/18 08:51 Dose: 500 mg Celecoxib (Celebrex) 100 mg PO Q12 [facility] Last Admin: 04/12/18 08:49 Dose: 100 mg Diphenhydramine HCl (Benadryl) 25 mg IVP TID PRN PRN Reason: Itching / Pruritus Enoxaparin Sodium (Lovenox) 40 mg SC DAILY [facility] PRN Reason: Protocol Gabapentin (Neurontin) 300 mg PO DAILY [facility] Last Admin: 04/12/18 08:51 Dose: 300 mg Gabapentin (Neurontin) 600 mg PO HS [facility] Last Admin: 04/11/18 22:24 Dose: 600 mg Home Med (Patient's Own Medication) 2 unit PO Q12 [facility] Last Admin: 04/12/18 08:51 Dose: 2 unit Lactated Ringer's (Lactated Ringer's) 1,000 mls @ 100 mls/hr IV .Q10H [facility] Last Admin: 04/12/18 02:19 Dose: 100 mls/hr Latanoprost (Xalatan Opht) 1 drop OU HS [facility] Last Admin: 04/11/18 22:26 Dose: 1 drop Metoprolol Tartrate (Lopressor) 50 mg PO BID [facility] Last Admin: 04/12/18 08:50 Dose: 50 mg Oxycodone HCl (Oxycontin Extended Release Tab) 10 mg PO Q12 [facility] Stop: 04/25/18 21:01 Last Admin: 04/12/18 08:47 Dose: 10 mg Oxycodone/Acetaminophen (Percocet 5/325 Mg Tab) 1 tab PO Q4 PRN PRN Reason: pain4-7 Stop: 04/14/18 18:34 Last Admin: 04/12/18 02:19 Dose: 1 tab Sennosides (Senokot Tab) 8.6 mg PO DAILY [facility] Last Admin: 04/12/18 08:52 Dose: 8.6 mg Tramadol HCl (Ultram) 50 mg PO TID PRN PRN Reason: Pain, moderate (4-7) - Labs Labs: 04/12/18 06:20 04/12/18 06:20 PT 12.8 Seconds (9.8-13.1) 04/11/18 07:50 INR 1.2 (0.9-1.2) 04/11/18 07:50 APTT 31.5 Seconds (25.6-37.1) 04/11/18 07:50 - Constitutional Appears: Well, No Acute Distress - Respiratory Exam Respiratory Exam: Clear to Ausculation Bilateral, NORMAL BREATHING PATTERN - Cardiovascular Exam Cardiovascular Exam: REGULAR RHYTHM, RRR - Extremities Exam Additional comments: LLE: Knee dressing C/D/I Calves soft and nontender b/l N/V intact distally Normal ROM at ankle No foot drop Distal pulses wnl Assessment and Plan - Assessment and Plan (Free Text) Assessment: 77 yo F s/p LTKR POD#1 Plan: Pain Control DVT ppx- SCD b/l Lovenox to start tonight, bridge to coumadin F/U labs, INR to restart coumadin Incentive Spirometer PT/OT - WBAT LLE
--- NOTE | 2018-04-12 09:14 | CP.PCM.PN ---
Subjective - Date & Time of Evaluation Date of Evaluation: 04/12/18 Time of Evaluation: 07:15 - Subjective Subjective: Patient seen and examined bediside with Dr Rangel Patient reports mild left knee pain, tolerated with pain medications. Denies chest pain, SOB, cough,fever. tolerates regular diet No overnight events. sleeping well with home CPAP machine. Objective - Vital Signs/Intake and Output Vital Signs (last 24 hours): Temp Pulse Resp BP Pulse Ox 98.4 F 99 H 20 104/66 95 04/12/18 08:14 04/12/18 08:50 04/12/18 08:14 04/12/18 08:50 04/12/18 08:14 - Medications Medications: Current Medications Acetaminophen (Tylenol 325mg Tab) 325 mg PO Q4 PRN PRN Reason: pain1-3 Calcium Carbonate (Oscal) 500 mg PO DAILY [facility] Last Admin: 04/12/18 08:51 Dose: 500 mg Celecoxib (Celebrex) 100 mg PO Q12 [facility] Last Admin: 04/12/18 08:49 Dose: 100 mg Diphenhydramine HCl (Benadryl) 25 mg IVP TID PRN PRN Reason: Itching / Pruritus Enoxaparin Sodium (Lovenox) 40 mg SC DAILY [facility] PRN Reason: Protocol Gabapentin (Neurontin) 300 mg PO DAILY [facility] Last Admin: 04/12/18 08:51 Dose: 300 mg Gabapentin (Neurontin) 600 mg PO HS [facility] Last Admin: 04/11/18 22:24 Dose: 600 mg Home Med (Patient's Own Medication) 2 unit PO Q12 [facility] Last Admin: 04/12/18 08:51 Dose: 2 unit Lactated Ringer's (Lactated Ringer's) 1,000 mls @ 100 mls/hr IV .Q10H [facility] Last Admin: 04/12/18 02:19 Dose: 100 mls/hr Latanoprost (Xalatan Opht) 1 drop OU HS [facility] Last Admin: 04/11/18 22:26 Dose: 1 drop Metoprolol Tartrate (Lopressor) 50 mg PO BID [facility] Last Admin: 04/12/18 08:50 Dose: 50 mg Oxycodone HCl (Oxycontin Extended Release Tab) 10 mg PO Q12 [facility] Stop: 04/25/18 21:01 Last Admin: 04/12/18 08:47 Dose: 10 mg Oxycodone/Acetaminophen (Percocet 5/325 Mg Tab) 1 tab PO Q4 PRN PRN Reason: pain4-7 Stop: 04/14/18 18:34 Last Admin: 04/12/18 02:19 Dose: 1 tab Sennosides (Senokot Tab) 8.6 mg PO DAILY [facility] Last Admin: 04/12/18 08:52 Dose: 8.6 mg Tramadol HCl (Ultram) 50 mg PO TID PRN PRN Reason: Pain, moderate (4-7) - Labs Labs: 04/12/18 06:20 04/12/18 06:20 PT 12.8 Seconds (9.8-13.1) 04/11/18 07:50 INR 1.2 (0.9-1.2) 04/11/18 07:50 APTT 31.5 Seconds (25.6-37.1) 04/11/18 07:50 - Constitutional Appears: Non-toxic, No Acute Distress - Head Exam Head Exam: ATRAUMATIC, NORMOCEPHALIC - Eye Exam Eye Exam: Normal appearance - ENT Exam ENT Exam: Mucous Membranes Moist - Respiratory Exam Respiratory Exam: Clear to Ausculation Bilateral - Cardiovascular Exam Cardiovascular Exam: REGULAR RHYTHM, +S1, +S2 - GI/Abdominal Exam GI & Abdominal Exam: Soft, Normal Bowel Sounds - Extremities Exam Additional comments: LLE: Knee dressing C/D/I Calves soft and nontender b/l N/V intact distally Normal ROM at ankle No foot drop Distal pulses wnl - Neurological Exam Neurological Exam: Alert, Awake - Psychiatric Exam Psychiatric exam: Normal Affect, Normal Mood - Skin Skin Exam: Normal Color Assessment and Plan - Assessment and Plan (Free Text) Plan: Assessment/Plan 1) Left knee pain s/p left knee total replacement POD #1 -c/w pain medications - Abx 2) HTN -controlled -c/w with home meds according to BP parameters 3) HLD -c/w Simvastatin 40 mg po daily. 4) Hx/o CVA -hx/o R occipital infartct CVA 2012 -no residual deficit 5) Mitral regurgitation -PFO and on warfarin. warfarin hold for surgery 5 days ago -will restart bridging 6) SCARLET -controlled with CPAP home machine -C/w CPAP 7) DVT prophylaxis -will resume lovenox tonight
[2018-04-12] MEDS: Enoxaparin 40 mg Syringe SC SCH (21:05)
[2018-04-12] MEDS: Latanoprost 0.005% Opht SOUTION OU SCH (21:07)
[2018-04-13] MEDS: Lactated Ringer's 1,000 ML IV SCH (05:00)
[2018-04-13] MEDS: Oxycodone/Acetaminophen 5/325 mg Tab PO PRN ×2 (06:06→13:49)
[2018-04-13 06:58] LABS: BASO % 0.1 % (0.0-2.0); EOS # 0.1 K/uL (0.0-0.7); EOS % 0.5 % (0.0-4.0); HEMOGLOBIN 13.1 g/dL (12.0-16.0); LYMPH # 1.3 K/uL (1.0-4.3); MEAN CELL VOLUME 92.1 fl (81.0-99.0); MEAN CORPUSCULAR HEMOGLOBIN 30.8 pg (27.0-31.0); MEAN CORPUSCULAR HGB CONC 33.5 g/dL (33.0-37.0); MEAN PLATELET VOLUME 8.4 fl (7.2-11.7); MONO # 1.7 K/uL (0.0-0.8); MONO % 13.9 % (0.0-10.0); NEUT # 9.4 K/uL (1.8-7.0); NEUT % 75.5 % (50.0-75.0); RBC 4.24 Mil/uL (3.80-5.20); WHITE BLOOD COUNT 12.5 K/uL (4.8-10.8)
[2018-04-13 07:20] LABS: INR 1.4 (0.9-1.2); PROTHROMBIN TIME 15.1 Seconds (9.8-13.1)
[2018-04-13 07:21] LABS: BLOOD UREA NITROGEN 13 mg/dl (7-17); CALCIUM 9.2 mg/dL (8.4-10.2); GFR AFRICAN-AMERICAN > 60; GFR NON-AFRICAN AMERICAN > 60
--- NOTE | 2018-04-13 08:03 | CP.PCM.PN ---
Subjective - Date & Time of Evaluation Date of Evaluation: 04/13/18 Time of Evaluation: 07:10 - Subjective Subjective: Patient seen and examined bedside with Dr nagy. Patient report left knee pain is alleviated with pain medications. She deneis chest pain, SOB, fever, . She reports 1 BM today. Patient evaluated by PT. Recommends TCU. Patient states whe wants to go to [facility] Objective - Vital Signs/Intake and Output Vital Signs (last 24 hours): Temp Pulse Resp BP Pulse Ox 99.9 F H 96 H 18 128/80 95 04/12/18 23:56 04/12/18 23:56 04/12/18 23:56 04/12/18 23:56 04/12/18 23:56 - Medications Medications: Current Medications Acetaminophen (Tylenol 325mg Tab) 325 mg PO Q4 PRN PRN Reason: pain1-3 Calcium Carbonate (Oscal) 500 mg PO DAILY [facility] Last Admin: 04/12/18 08:51 Dose: 500 mg Celecoxib (Celebrex) 100 mg PO Q12 [facility] Last Admin: 04/12/18 21:05 Dose: 100 mg Diphenhydramine HCl (Benadryl) 25 mg IVP TID PRN PRN Reason: Itching / Pruritus Enoxaparin Sodium (Lovenox) 40 mg SC DAILY [facility] PRN Reason: Protocol Last Admin: 04/12/18 21:05 Dose: 40 mg Gabapentin (Neurontin) 300 mg PO DAILY [facility] Last Admin: 04/12/18 08:51 Dose: 300 mg Gabapentin (Neurontin) 600 mg PO [facility] Last Admin: 04/12/18 21:18 Dose: 600 mg Home Med (Patient's Own Medication) 2 unit PO Q12 [facility] Last Admin: 04/12/18 21:06 Dose: 2 unit Lactated Ringer's (Lactated Ringer's) 1,000 mls @ 100 mls/hr IV .Q10H [facility] Last Admin: 04/13/18 05:00 Dose: Not Given Latanoprost (Xalatan Opht) 1 drop OU [facility] Last Admin: 04/12/18 21:07 Dose: 1 drop Metoprolol Tartrate (Lopressor) 50 mg PO BID [facility] Last Admin: 04/12/18 16:27 Dose: 50 mg Oxycodone/Acetaminophen (Percocet 5/325 Mg Tab) 1 tab PO Q4 PRN PRN Reason: pain4-7 Stop: 04/14/18 18:34 Last Admin: 04/13/18 06:06 Dose: 1 tab Sennosides (Senokot Tab) 8.6 mg PO DAILY [facility] Last Admin: 04/12/18 08:52 Dose: 8.6 mg Tramadol HCl (Ultram) 50 mg PO TID PRN PRN Reason: Pain, moderate (4-7) - Labs Labs: 04/13/18 05:50 04/13/18 05:50 PT 15.1 Seconds (9.8-13.1) H 04/13/18 05:50 INR 1.4 (0.9-1.2) H 04/13/18 05:50 APTT 31.5 Seconds (25.6-37.1) 04/11/18 07:50 - Constitutional Appears: Non-toxic, No Acute Distress - Head Exam Head Exam: ATRAUMATIC, NORMOCEPHALIC - Eye Exam Eye Exam: Normal appearance - Neck Exam Neck Exam: Normal Inspection - Respiratory Exam Respiratory Exam: Clear to Ausculation Bilateral. absent: Rales, Rhonchi, Wheezes - Cardiovascular Exam Cardiovascular Exam: REGULAR RHYTHM, +S1, +S2 - GI/Abdominal Exam GI & Abdominal Exam: Soft, Normal Bowel Sounds. absent: Tenderness - Extremities Exam Extremities Exam: Normal Capillary Refill Additional comments: LLE: Knee dressing C/D/I Calves soft and nontender b/l N/V intact distally Normal ROM at ankle No foot drop Distal pulses wnl - Neurological Exam Neurological Exam: Alert, Awake, Oriented x3 - Psychiatric Exam Psychiatric exam: Normal Affect, Normal Mood Assessment and Plan - Assessment and Plan (Free Text) Plan: Assessment/Plan 1) Left knee pain s/p left knee total replacement POD #2 -c/w pain medications - Abx 2) HTN -controlled -c/w with home meds according to BP parameters 3) HLD -c/w Simvastatin 40 mg po daily. 4) Hx/o CVA -hx/o R occipital infartct CVA 2012 -no residual deficit 5) Mitral regurgitation -PFO and on warfarin. -Continue Coumadin 4 mg daily 6) SCARLET -controlled with CPAP home machine -C/w CPAP 7) DVT prophylaxis - lovenox 40 mg sc daily
[2018-04-13 08:11] VITALS: RESP 20
[2018-04-13] MEDS: Enoxaparin 40 mg Syringe SC SCH (08:49)
--- NOTE | 2018-04-13 10:50 | CP.PCM.PN ---
Subjective - Date & Time of Evaluation Date of Evaluation: 04/13/18 Time of Evaluation: 10:00 - Subjective Subjective: Patient states she had some of her muscle cramping in the operative leg this am , but now resolved. She is taking the gabapentin and her home medication which controls this. Denies CP/SOB/dizziness. TOlerating PT well. Objective - Vital Signs/Intake and Output Vital Signs (last 24 hours): Temp Pulse Resp BP Pulse Ox 99.0 F 96 H 20 141/82 98 04/13/18 08:11 04/13/18 08:11 04/13/18 08:11 04/13/18 08:11 04/13/18 08:11 - Medications Medications: Current Medications Acetaminophen (Tylenol 325mg Tab) 325 mg PO Q4 PRN PRN Reason: pain1-3 Calcium Carbonate (Oscal) 500 mg PO DAILY [facility] Last Admin: 04/13/18 08:49 Dose: 500 mg Celecoxib (Celebrex) 100 mg PO Q12 [facility] Last Admin: 04/13/18 08:48 Dose: 100 mg Diphenhydramine HCl (Benadryl) 25 mg IVP TID PRN PRN Reason: Itching / Pruritus Enoxaparin Sodium (Lovenox) 40 mg SC DAILY [facility] PRN Reason: Protocol Last Admin: 04/13/18 08:49 Dose: 40 mg Gabapentin (Neurontin) 300 mg PO DAILY [facility] Last Admin: 04/13/18 09:58 Dose: 300 mg Gabapentin (Neurontin) 600 mg PO HS [facility] Home Med (Patient's Own Medication) 2 unit PO Q12 [facility] Last Admin: 04/13/18 08:50 Dose: 2 unit Lactated Ringer's (Lactated Ringer's) 1,000 mls @ 100 mls/hr IV .Q10H [facility] Last Admin: 04/13/18 05:00 Dose: Not Given Latanoprost (Xalatan Opht) 1 drop OU HS [facility] Last Admin: 04/12/18 21:07 Dose: 1 drop Metoprolol Tartrate (Lopressor) 50 mg PO BID [facility] Last Admin: 04/13/18 08:49 Dose: 50 mg Oxycodone/Acetaminophen (Percocet 5/325 Mg Tab) 1 tab PO Q4 PRN PRN Reason: pain4-7 Stop: 05/18/18 18:34 Last Admin: 04/13/18 06:06 Dose: 1 tab Sennosides (Senokot Tab) 8.6 mg PO DAILY [facility] Last Admin: 04/13/18 08:50 Dose: 8.6 mg Tramadol HCl (Ultram) 50 mg PO TID PRN PRN Reason: Pain, moderate (4-7) - Labs Labs: 04/13/18 05:50 04/13/18 05:50 PT 15.1 Seconds (9.8-13.1) H 04/13/18 05:50 INR 1.4 (0.9-1.2) H 04/13/18 05:50 APTT 31.5 Seconds (25.6-37.1) 04/11/18 07:50 - Extremities Exam Additional comments: Left knee: dressing intact, +ROM ankle, toes, sensation intact, calves osft NT neg homans Assessment and Plan (1) Primary osteoarthritis of left knee Assessment & Plan: POD#2 s/p left TKR PT/OT VTE proph d/c planning to [facility] in am encourage OOB d/w DR. Cwoart, agrees with above Status: Acute
[2018-04-13 11:29] LABS: ALB/GLOB RATIO 1.1 (1.0-2.1); ALBUMIN 3.3 g/dL (3.5-5.0); BILIRUBIN,DIRECT 0.5 mg/ml (0.0-0.4)
[2018-04-13 16:15] VITALS: BP 147/86; PULSE 100; TEMP 98.5; O2SAT 94
== END 2018-04-13 17:28 | DRG 470 ==
LOC: H.OPSURG 06:31 → H.MEDSURG1 15:50
PROVIDERS: ADMIT Internal Medicine; ATTEND Internal Medicine
PROC: 0SRD0J9 Replacement of Left Knee Joint with Synthetic Substitute, Cemented, Open Approach (ICD-10-PCS; principal; 2018-04-11 11:50)
PROC: F07Z9FZ Gait Training/Functional Ambulation Treatment using Assistive, Adaptive, Supportive or Protective Equipment (ICD-10-PCS; 2018-04-12)
DX: M17.12 Unilateral primary osteoarthritis, left knee (principal); E66.01 Morbid (severe) obesity due to excess calories; I34.0 Nonrheumatic mitral (valve) insufficiency; G47.33 Obstructive sleep apnea (adult) (pediatric); I10 Essential (primary) hypertension; E78.5 Hyperlipidemia, unspecified; Z68.36 Body mass index [BMI] 36.0-36.9, adult; Z96.642 Presence of left artificial hip joint; E55.9 Vitamin D deficiency, unspecified; F41.9 Anxiety disorder, unspecified; Z86.73 Personal history of transient ischemic attack (TIA), and cerebral infarction without residual deficits; Z79.899 Other long term (current) drug therapy; Z85.828 Personal history of other malignant neoplasm of skin

== ENCOUNTER 2018-05-09 12:54 | Emergency (ER) | payer MEDICARE ==
[2018-05-09 13:20] VITALS: BP 122/70; PULSE 86; RESP 20; TEMP 98.1; O2SAT 94; BMI 35.9
--- NOTE | 2018-05-09 14:53 | ED PDOC ---
Lower Extremity Pain/Injury Time Seen by Provider: 05/09/18 13:46 Chief Complaint (Nursing): Lower Extremity Problem/Injury Chief Complaint (Provider): Wound Care on Left Knee History Per: Patient History/Exam Limitations: no limitations Onset/Duration Of Symptoms: Other (1 week) Current Symptoms Are (Timing): Still Present Additional Complaint(s): 77 year old female presents to the ED complaining of wound problem on left knee. States she had a left knee surgery done by Dr. Cowart approximately 1 month ago. Patient states she goes to rehab but for one week, she reports of a clear discharge on lower part of the knee and a small wound opening. She can ambulate in the ED with her walker. States she spoke to Dr. Cowart before she came to the ED. Denies pain, fever, and any other medical problems. PMD: Dr. Cowart Past Medical History Reviewed: Historical Data, Nursing Documentation, Vital Signs Vital Signs: Last Vital Signs Temp 98.1 F 05/09/18 13:19 Pulse 86 05/09/18 13:19 Resp 20 05/09/18 13:19 BP 122/70 05/09/18 13:19 Pulse Ox 94 L 05/09/18 13:19 - Medical History PMH: Anxiety, Arthritis (hips), Bronchitis, Gall Bladder Disease, HTN, Hypercholesterolemia, Sleep Apnea (ON C-PAP), TIA (5ys ago, started on coumadin by MD) Denies: Anemia, Depression, HIV, Chronic Kidney Disease - Surgical History Surgical History: Cholecystectomy, Tonsillectomy Denies: Pacemaker Other surgeries: hip and knee replacement - Family History Family History: States: Unknown Family Hx - Home Medications Home Medications: Ambulatory Orders Medication Instructions Recorded Irbesartan/Hydrochlorothiazide 1 tab PO DAILY 07/12/17 [Irbesartan-Hctz 300-12.5 mg Tb] Latanoprost 0.005% Opht [Xalatan 1 drp OU HS 07/12/17 Opht] Metoprolol Tartrate [Lopressor] 50 mg PO BID 07/12/17 Omeprazole 20 mg PO DAILY 07/12/17 Simvastatin [Zocor] 40 mg PO HS 07/12/17 Vit A/Vit C/Vit E/Zinc/Copper 1 each PO DAILY 07/12/17 [Preservision Areds Softgel] rOPINIRole [Requip] 0.5 mg PO BID 07/12/17 traMADol [Ultram] 50 mg PO TID 07/12/17 Calcium Carbonate [Calcium] 500 mg PO DAILY 04/11/18 Niacin [Plain Niacin] 250 mg PO DAILY 04/11/18 Sennosides [Senna] 8.6 mg PO DAILY 04/11/18 Acetaminophen [Tylenol 325mg tab] 325 mg PO Q4 PRN tab 04/13/18 Celecoxib [celeBREX] 100 mg PO Q12 cap 04/13/18 Enoxaparin [Lovenox] 40 mg SC DAILY syr 04/13/18 Gabapentin [Neurontin] 300 mg PO DAILY cap 04/13/18 Gabapentin [Neurontin] 600 mg PO HS tab 04/13/18 Warfarin [Coumadin] 4 mg PO QD5 tab 04/13/18 oxyCODONE/Acetaminophen [Percocet 1 tab PO Q4 PRN tab 04/13/18 5/325 mg Tab] Cephalexin [cephalexin] 500 mg PO BID #20 cap 05/09/18 - Allergies Allergies/Adverse Reactions: Allergies Allergy/AdvReac Type Severity Reaction Status Date / Time No Known Allergies Allergy Verified 04/11/18 08:47 Review of Systems ROS Statement: Except As Marked, All Systems Reviewed And Found Negative Constitutional: Negative for: Fever Musculoskeletal: Negative for: Leg Pain Physical Exam - Reviewed Nursing Documentation Reviewed: Yes Vital Signs Reviewed: Yes - Physical Exam Appears: Positive for: Well, Non-toxic, No Acute Distress Head Exam: Positive for: ATRAUMATIC, NORMAL INSPECTION, NORMOCEPHALIC Skin: Positive for: Normal Color, Warm, Dry Eye Exam: Positive for: EOMI, Normal appearance, PERRL ENT: Positive for: Normal ENT Inspection Neck: Positive for: Normal, Painless ROM, Supple. Negative for: Decreased ROM Cardiovascular/Chest: Positive for: Regular Rate, Rhythm. Negative for: Murmur Respiratory: Positive for: Normal Breath Sounds. Negative for: Decreased Breath Sounds, Accessory Muscle Use, Respiratory Distress Gastrointestinal/Abdominal: Positive for: Normal Exam, Bowel Sounds, Soft. Negative for: Tenderness, Guarding, Rebound Back: Positive for: Normal Inspection. Negative for: L CVA Tenderness, R CVA Tenderness Extremity: Positive for: Other (left knee larger than right knee, vertical wound going down on anterior aspect of left knee, distal corner of wound 1cm dehiscence, surrounding redness ). Negative for: Tenderness (discharge), Swelling Neurologic/Psych: Positive for: Alert, Oriented (x3). Negative for: Motor/ Sensory Deficits - ECG O2 Sat by Pulse Oximetry: 94 (RA) Pulse Ox Interpretation: Normal Medical Decision Making Medical Decision Making: Time: 1346 Initial Impression: wound recheck on left knee Differential Diagnosis includes but is not limited to: Dehiscence of wound, possible surgical site infection Initial Plan: --Reevaluation Discussed case with Ortho Mina MANNING and waiting for recommendations from Dr. Cowart. Time: 1505 NIGEL Zacarias discussed the case with Dr. Cowart who recommends discharge and follow- up at his office. Patient will be discharged with Keflex. Scribe Attestation: Documented by Dalila Jameson, acting as a scribe for Norma Barba MD Provider Scribe Attestation: All medical record entries made by the Scribe were at my direction and personally dictated by me. I have reviewed the chart and agree that the record accurately reflects my personal performance of the history, physical exam, medical decision making, and the department course for this patient. I have also personally directed, reviewed, and agree with the discharge instructions and disposition. Disposition - Clinical Impression Clinical Impression: Encounter for wound re-check, Superficial postoperative wound infection - Patient ED Disposition Is Patient to be Admitted: No Doctor Will See Patient In The: Office Counseled Patient/Family Regarding: Studies Performed, Diagnosis, Need For Followup - Disposition Referrals: Roseann Cowart MD [Staff Provider] - Disposition: Routine/Home Disposition Time: 15:26 Condition: GOOD Additional Instructions: Follow up with your orthopedist within 2-3 days. Take your medications as instructed. Prescriptions: Cephalexin [cephalexin] 500 mg PO BID #20 cap Instructions: Wound Infection
--- NOTE | 2018-05-09 15:24 | CP.PCM.CON ---
History of Present Illness - History of Present Illness History of Present Illness: Orthopedic consult Patient is a 77 y/o female with PMH of HTN, hyperlipidemia, SVT and TIA who presents to the ER with complaints of left knee redness and drainage. The patient has a history of an uncomlicated left total knee replacement done by Dr. Cowart on 04/11/18. She was progressing well with inpatient rehab and had her paige removed last week. Following that, she noticed drainage from the proximal aspect of the wound and was placed on ciprofloxacin by the rehab physician resulting in a well healed wound. Four days ago she experienced a similar event to the distal aspect of her wound with minimal yellow/whitish drainage and redness which prompted her to visit the ER. Currently, her pain is controlled and she is able to weight bear, bend and extend the knee without pain. She has edema which had postop that has been improving. She denies any numbness, tingling or radiation of pain. She also denies CP/SOB/N/V/D/fever/ dysuria/melena. Review of Systems - Review of Systems All systems: reviewed and no additional remarkable complaints except Review of Systems: as per HPI Past Patient History - Tetanus Immunizations Tetanus Immunization: Unknown - Past Medical History & Family History Past Medical History?: Yes Past Family History: Reviewed and not pertinent - Past Social History Smoking Status: Never Smoked Alcohol: None Drugs: Denies - CARDIAC Hx Hypercholesterolemia: Yes Hx Hypertension: Yes Hx Pacemaker: No - PULMONARY Hx Bronchitis: Yes Hx Sleep Apnea: Yes (ON C-PAP) - NEUROLOGICAL Hx Transient Ischemic Attacks (TIA): Yes (5ys ago, started on coumadin by ) - HEENT Hx HEENT Problems: Yes Hx Glaucoma: Yes (BOTH) Other/Comment: wears eyeglasses - RENAL Hx Chronic Kidney Disease: No - ENDOCRINE/METABOLIC Hx Endocrine Disorders: No Hx Diabetes Mellitus Type 2: No (denies) - HEMATOLOGICAL/ONCOLOGICAL Hx Anemia: No Hx Human Immunodeficiency Virus (HIV): No - INTEGUMENTARY Hx Dermatological Problems: No Hx Basil Cell: Yes (CA OF SKIN) - MUSCULOSKELETAL/RHEUMATOLOGICAL Hx Arthritis: Yes (hips) - GASTROINTESTINAL Hx Gall Bladder Disease: Yes - GENITOURINARY/GYNECOLOGICAL Hx Genitourinary Disorders: No - PSYCHIATRIC Hx Anxiety: Yes Hx Depression: No - SURGICAL HISTORY Hx Cholecystectomy: Yes Hx Orthopedic Surgery: Yes (L MARINA, R MARINA, L TKA) Hx Tonsillectomy: Yes - ANESTHESIA Hx Anesthesia: Yes Hx Anesthesia Reactions: No Hx Malignant Hyperthermia: No Meds Home Medications: Home Medication List Medication Instructions Recorded Confirmed Type Cephalexin [cephalexin] 500 mg PO BID #20 cap 05/09/18 Rx Allergies/Adverse Reactions: Allergies Allergy/AdvReac Type Severity Reaction Status Date / Time No Known Allergies Allergy Verified 04/11/18 08:47 - Medications Medications: coumadin, metoprolol, HCTZ Physical Exam - Constitutional Appears: Well, No Acute Distress - Head Exam Head Exam: ATRAUMATIC, NORMOCEPHALIC - Eye Exam Eye Exam: EOMI, Normal appearance, PERRL - ENT Exam ENT Exam: Mucous Membranes Moist, Normal Exam - Respiratory Exam Respiratory Exam: Clear to Auscultation Bilateral, NORMAL BREATHING PATTERN - Cardiovascular Exam Cardiovascular Exam: REGULAR RHYTHM - GI/Abdominal Exam GI & Abdominal Exam: Normal Bowel Sounds, Soft - Extremities Exam Additional comments: L knee: mild diffuse swelling/edema, no tenderness proximal and mid wound well healed, distal wound with superficial small opening with minimal drainage, mild erythema surrounding distal wound ROM 0-100 sensation intact SP/DP/TN motor intact EHL/FHL/TA/G/HS/Q pedal pulses intact comps soft NT R knee: no swelling, no erythema, no tenderness full ROM sensation intact SP/DP/TN motor intact EHL/FHL/TA/G/HS/Q pedal pulses intact comps soft NT - Neurological Exam Neurological exam: Alert, Oriented x3 - Psychiatric Exam Psychiatric exam: Normal Affect, Normal Mood - Skin Skin Exam: Normal Color, Warm Results - Vital Signs Recent Vital Signs: Last Vital Signs Temp 98.1 F 05/09/18 13:19 Pulse 86 05/09/18 13:19 Resp 20 05/09/18 13:19 BP 122/70 05/09/18 13:19 Pulse Ox 94 L 05/09/18 15:18 Assessment & Plan (1) Postoperative stitch abscess Assessment and Plan: Patient is 1 month s/p L TKA with a distal wound superficial stitch abscess -Wet to dry dressings applied -discharge on PO keflex x 7 days -f/u in office within 7-10 days -above d/w Dr. Cowart in agreement Status: Acute - Date & Time Date: 05/09/18 Time: 14:30
== END 2018-05-09 15:56 | disposition home or self-care (01) ==
LOC: H.ER 12:54
DX: Z48.01 Encounter for change or removal of surgical wound dressing (principal); T81.9XXA Unspecified complication of procedure, initial encounter